=== PATIENT | female | born 1990 | race African-American/Black ===

== ENCOUNTER 2018-08-24 11:10 | Inpatient (IN) | payer OTHER ==
[2018-08-24 13:12] LABS: Hemoglobin 11.9 gm/dl (10.1-14.3); Mean Corpuscular HGB Conc 34 % (30-34); Mean Corpuscular Volume 83 fl (79-97); Platelet Count 254 K/mm3 (140-440); Red Blood Count 4.24 M/mm3 (3.65-5.03); Red Cell Distribution Width 17.9 % (13.2-15.2)
[2018-08-24 13:19] LABS: Bilirubin,Urine NEG (Negative); Blood,Urine NEG (Negative); Calcium Oxalate Crystals,Urine 3+; Color,Urine Yellow (Yellow); Mucus,Urine FEW /HPF; Protein,Urine <15 mg/dL mg/dL (Negative); Urobilinogen,Urine < 2.0 mg/dL (<2.0)
[2018-08-24 13:30] LABS: Alanine Aminotransferase 24 units/L (7-56)
[2018-08-24 13:35] LABS: RBC,Urine < 1.0 /HPF (0.0-6.0)
[2018-08-24 13:49] LABS: Creatinine,Urine 82.7 mg/dL (0.1-20.0); Protein/Creatinine Ratio,Urine 0.21
[2018-08-24] MEDS ORDERED: BRETHINE SUB-Q PRN (17:07)
[2018-08-24] MEDS ORDERED: BRETHINE IVP PRN (17:07)
[2018-08-24] MEDS ORDERED: STADOL IV PRN (17:07)
[2018-08-24] MEDS ORDERED: NARCAN 0.4 MG/1 ML IV PRN (17:07)
[2018-08-24] MEDS ORDERED: MINERAL OIL PO PRN (17:07)
[2018-08-24] MEDS ORDERED: ZOFRAN IV PRN (17:07)
[2018-08-24] MEDS ORDERED: XYLOCAINE 2% INFILTRATI ONE (17:07)
[2018-08-24] MEDS ORDERED: AMBIEN PO PRN (17:11)
--- NOTE | 2018-08-24 17:16 | History and Physical Report ---
History of Present Illness Date of examination: 08/24/18 Date of admission: 08/24/2018 Chief complaint: Presents due to elevated blood pressures and poorly controlled GDM A2 History of present illness: 2nd and 3rd trimesters complicated by a UTI and s/s of a common cold. 3rd trimester dignosed with GDM, taking Glyburide 2.5mg. Past History Past Medical History: no pertinent history Past Surgical History: no surgical history Family/Genetic History: none Social history: no significant social history - Obstetrical History Expected Date of Delivery: 09/21/18 Actual Gestation: 36 Week(s) 0 Day(s) : 1 Medications and Allergies Allergies Allergy/AdvReac Type Severity Reaction Status Date / Time No Known Allergies Allergy Verified 08/24/18 11:37 Active Meds: Active Medications Butorphanol Tartrate (Stadol) 2 mg IV Q2H PRN PRN Reason: Pain , Severe (7-10) Dinoprostone (Cervidil) 10 mg VG ONCE ONE Stop: 08/24/18 17:08 Ephedrine Sulfate (Ephedrine Sulfate) 10 mg IV Q2M PRN PRN Reason: Hypotension Oxytocin/Sodium Chloride (Pitocin/Ns 20 Unit/1000ml Drip) 20 units in 1,000 mls @ 125 mls/hr IV DIRECT JOSE ALEJANDRO Lactated Ringer's (Lactated Ringers) 1,000 mls @ 125 mls/hr IV DIRECT JOSE ALEJANDRO Lidocaine (Xylocaine 2%) 20 ml INFILTRATI ONCE ONE Stop: 08/24/18 17:08 Mineral Oil (Mineral Oil) 30 ml PO QHS PRN PRN Reason: Constipation Naloxone HCl (Narcan 0.4 Mg/1 Ml) 0.1 mg IV Q2MIN PRN PRN Reason: Res Rate </= 8 or 02 SAT < 92% Ondansetron HCl (Zofran) 4 mg IV Q8H PRN PRN Reason: Nausea And Vomiting Terbutaline Sulfate (Brethine) 0.25 mg SUB-Q ONCE PRN PRN Reason: Hyperstimulation/Hypertonicity Terbutaline Sulfate (Brethine) 0.25 mg IVP ONCE PRN PRN Reason: Hyperstimulation/Hypertonicity Zolpidem Tartrate (Ambien) 10 mg PO QHS PRN PRN Reason: Insomnia Review of Systems All systems: negative - Vital Signs Vital signs: Vital Signs Temp Pulse Resp BP 97.9 F 101 H 20 163/106 08/24/18 11:40 08/24/18 11:40 08/24/18 11:40 08/24/18 11:40 Temp Pulse Resp BP Pulse Ox 97.9 F 110 H 20 140/99 08/24/18 11:40 08/24/18 17:10 08/24/18 11:40 08/24/18 17:10 - Physical Exam Breasts: Positive: normal Cardiovascular: Regular rate Lungs: Positive: Clear to auscultation, Normal air movement Abdomen: Positive: normal appearance, soft Genitourinary (Female): Positive: normal external genitalia, normal perenium Vagina: Positive: normal moisture Uterus: Positive: enlarged Anus/Rectum: Positive: normal perianal skin Extremities: Positive: normal - Obstetrical FHR: category 1 Uterine Contraction Monitor Mode: External Cervical Dilatation: 0.5 Cervical Effacement Percentage: 50 station: -3 Uterine Contraction Pattern: Irregular Uterine Tone Measurement Phase: Resting Uterine Contraction Intensity: Mild Results Result Diagrams: 08/24/18 12:21 08/24/18 12:21 Abnormal lab results 08/24/18 08/24/18 08/24/18 Range/Units 12:21 12:21 12:21 RDW 17.9 H (13.2-15.2) % Creatinine 0.4 L (0.7-1.2) mg/dL POC Glucose (70-105) Uric Acid 3.0 L (3.5-7.6) mg/dL Urine Creatinine 82.7 H (0.1-20.0) mg/dL Urine Total Protein 17 H (5-11.8) mg/dL 08/24/18 Range/Units 14:17 RDW (13.2-15.2) % Creatinine (0.7-1.2) mg/dL POC Glucose 67 L (70-105) Uric Acid (3.5-7.6) mg/dL Urine Creatinine (0.1-20.0) mg/dL Urine Total Protein (5-11.8) mg/dL All other labs normal. Assessment and Plan A: IUP at 36 Weeks Category I Tracing Preeclampsia GDM A2 GBS Negative P: Admit to L&D per Routine Orders Consulted Dr. Benita Koenig MD Accuchecks q 4 hours Cervidil Induction Hydralazine 10mg IV for BPs equal to greater than 160/105 Ambien 10mg PO at bedtime
[2018-08-24] MEDS ORDERED: APRESOLINE IV PRN (17:24)
[2018-08-24] MEDS ORDERED: CERVIDIL VG ONE (17:30)
[2018-08-24] MEDS ORDERED: PITOCin/NS 20 UNIT/1000ML DRIP 20 UNITS/1,000 ML BAG IV SCH (18:00)
--- NOTE | 2018-08-25 07:17 | Ultrasound Report ---
PROCEDURE: US OB BPP WO NON-STRESS TECHNIQUE: Transabdominal imaging was obtained for the biophysical profile. HISTORY: BPP COMPARISONS: None FINDINGS: For breathing movements, a score of 2 out of 2 was obtained. For movements, a score of 2 out of 2 was obtained. For posture and tone, a score of 2 out of 2 was obtained. Qualitative amniotic fluid volume, a score of 2 out of 2 was obtained. The heart rate is 137 BPM. IMPRESSION: Biophysical profile score is 8 out of 8. The heart rate is 137 BPM.. This document is electronically signed by Jp Ware MD., August 25 2018 07:15:52 AM ET
--- NOTE | 2018-08-25 07:18 | Ultrasound Report ---
PROCEDURE: US OB LIMITED TECHNIQUE: A limited OB sonogram was obtained for evaluation of the JERAMY. HISTORY: JERAMY COMPARISONS: None FINDINGS: The JERAMY is 13.6 cm which is normal. The fetus is in cephalic presentation. The heart rate is 13 6 BPM. IMPRESSION: JERAMY is 13.6 cm which is normal.. This document is electronically signed by Jp Ware MD., August 25 2018 07:16:45 AM ET
[2018-08-25] MEDS ORDERED: MAGNESIUM SULFATE 4GM/100ML 4 GM/100 ML BAG IV ONE (08:00)
[2018-08-25] MEDS: LACTATED RINGERS 1,000 ML IV SCH ×2 (08:25→20:45)
[2018-08-25] MEDS: CYTOTEC VG PRN ×4 (08:30→23:25)
--- NOTE | 2018-08-25 08:46 | Progress Note ---
Assessment and Plan A: IUP at 36 1/7 Weeks Category I Tracing Preeclampsia GDM A2 GBS Negative P: Consulted Dr. Benita Koenig MD Recommends starting MagSO4: 4G/loading dose; 2G/hourly MagSO4 precautions Cytotec 25mcg placed per vagina Hydralazine 10mg IV for BPs equal to greater than 160/105 Continue Accuchecks Subjective - Subjective Date of service: 08/25/18 Interval history: 2nd and 3rd trimesters complicated by a UTI and s/s of a common cold. 3rd trimester dignosed with GDM, taking Glyburide 2.5mg. Patient reports: movement normal, other (Complains of HAs and dizziness) Objective - Vital Signs Vital Signs: Vital Signs - 12hr 08/24/18 08/24/18 08/24/18 20:40 22:33 23:34 Pulse Rate 96 H 100 H 110 H Respiratory Rate Blood Pressure 141/97 134/92 141/92 08/25/18 08/25/18 08/25/18 00:06 00:34 00:48 Pulse Rate 102 H 110 H 104 H Respiratory Rate Blood Pressure 137/93 143/93 135/96 08/25/18 08/25/18 08/25/18 01:03 01:34 01:49 Pulse Rate 99 H 107 H 114 H Respiratory Rate Blood Pressure 146/100 147/101 156/105 08/25/18 08/25/18 08/25/18 02:04 02:13 02:34 Pulse Rate 106 H 105 H 116 H Respiratory Rate Blood Pressure 152/104 158/104 142/94 08/25/18 08/25/18 08/25/18 03:04 03:34 04:04 Pulse Rate 125 H 126 H 131 H Respiratory Rate Blood Pressure 134/94 130/80 123/87 08/25/18 08/25/18 08/25/18 04:34 05:04 06:04 Pulse Rate 133 H 127 H 120 H Respiratory Rate Blood Pressure 121/81 137/75 136/77 08/25/18 08/25/18 08/25/18 06:23 06:24 06:25 Pulse Rate 130 H 123 H Respiratory 20 Rate Blood Pressure 159/106 151/102 08/25/18 08/25/18 08/25/18 06:34 07:03 07:32 Pulse Rate 127 H 144 H 116 H Respiratory Rate Blood Pressure 144/71 137/93 124/79 08/25/18 08/25/18 08:01 08:32 Pulse Rate 134 H 130 H Respiratory Rate Blood Pressure 135/98 146/93 - Exam Breasts: normal Cardiovascular: Regular rate Lungs: Clear to auscultation, Normal air movement Abdomen: Present: normal appearance, soft Uterus: Present: normal, firm FHR: category 1 Uterine Contraction Monitor Mode: External Cervical Dilatation: 1 (intact, VTX) Cervical Effacement Percentage: 50 station: -2 Uterine Contraction Pattern: Irregular Uterine Tone Measurement Phase: Resting Uterine Contraction Intensity: Mild Extremities: normal - Labs Labs: Abnormal Labs 08/24/18 08/24/18 08/24/18 12:21 12:21 12:21 RDW 17.9 H Creatinine 0.4 L POC Glucose Uric Acid 3.0 L Urine Creatinine 82.7 H Urine Total Protein 17 H 08/24/18 08/24/18 08/25/18 14:17 18:34 08:20 RDW Creatinine POC Glucose 67 L 122 H 108 H Uric Acid Urine Creatinine Urine Total Protein Laboratory Results - last 24 hr 08/24/18 08/24/18 08/24/18 12:21 12:21 12:21 WBC 9.9 RBC 4.24 Hgb 11.9 Hct 35.0 MCV 83 MCH 28 MCHC 34 RDW 17.9 H Plt Count 254 Creatinine Estimated GFR POC Glucose Uric Acid AST ALT Lactate Dehydrogenase Urine Color Yellow Urine Turbidity Clear Urine pH 7.0 Ur Specific [place] 1.014 Urine Protein <15 mg/dl Urine Glucose (UA) Neg Urine Ketones Neg Urine Blood Neg Urine Nitrite Neg Urine Bilirubin Neg Urine Urobilinogen < 2.0 Ur Leukocyte Esterase Tr Urine WBC (Auto) 6.0 Urine RBC (Auto) < 1.0 U Epithel Cells (Auto) 3.0 Calcium Oxalate Crystal 3+ Urine Mucus Few Urine Creatinine 82.7 H Protein/Creatinin Ratio 0.21 Urine Total Protein 17 H Blood Type Antibody Screen BELKYS Antibody Screen 08/24/18 08/24/18 08/24/18 12:21 12:21 14:17 WBC RBC Hgb Hct MCV MCH MCHC RDW Plt Count Creatinine 0.4 L Estimated GFR > 60 POC Glucose 67 L Uric Acid 3.0 L AST 35 ALT 24 Lactate Dehydrogenase 177 Urine Color Urine Turbidity Urine pH Ur Specific [place] Urine Protein Urine Glucose (UA) Urine Ketones Urine Blood Urine Nitrite Urine Bilirubin Urine Urobilinogen Ur Leukocyte Esterase Urine WBC (Auto) Urine RBC (Auto) U Epithel Cells (Auto) Calcium Oxalate Crystal Urine Mucus Urine Creatinine Protein/Creatinin Ratio Urine Total Protein Blood Type O POSITIVE Antibody Screen TNR BELKYS Antibody Screen Negative 08/24/18 08/25/18 18:34 08:20 WBC RBC Hgb Hct MCV MCH MCHC RDW Plt Count Creatinine Estimated GFR POC Glucose 122 H 108 H Uric Acid AST ALT Lactate Dehydrogenase Urine Color Urine Turbidity Urine pH Ur Specific [place] Urine Protein Urine Glucose (UA) Urine Ketones Urine Blood Urine Nitrite Urine Bilirubin Urine Urobilinogen Ur Leukocyte Esterase Urine WBC (Auto) Urine RBC (Auto) U Epithel Cells (Auto) Calcium Oxalate Crystal Urine Mucus Urine Creatinine Protein/Creatinin Ratio Urine Total Protein Blood Type Antibody Screen BELKYS Antibody Screen
[2018-08-25] MEDS: MAGNESIUM SULFATE 40GM/1000ML 40 GM/1,000 ML BAG IV SCH (08:55)
[2018-08-25] MEDS ORDERED: TYLENOL PO PRN (15:38)
--- NOTE | 2018-08-25 18:00 | Progress Note ---
Assessment and Plan A: IUP at 36 2/7 Weeks Category I Tracing Preeclampsia; MgS04 2gr/hr GDM A2 GBS Negative P: Continue labor [email or web address] Continue MagSO4 precautions Cytotec 25mcg placed per vagina Q4 per protocol Hydralazine 10mg IV for BPs equal to greater than 160/105 Continue Accuchecks Subjective - Subjective Date of service: 08/25/18 Patient reports: movement normal, no vaginal bleeding, no contractions Objective - Vital Signs Vital Signs: Vital Signs - 12hr 08/25/18 08/25/18 08/25/18 06:04 06:23 06:24 Temperature Pulse Rate 120 H 130 H 123 H Respiratory Rate Blood Pressure 136/77 159/106 151/102 O2 Sat by Pulse Oximetry 08/25/18 08/25/18 08/25/18 06:25 06:34 07:03 Temperature Pulse Rate 127 H 144 H Respiratory 20 Rate Blood Pressure 144/71 137/93 O2 Sat by Pulse Oximetry 08/25/18 08/25/18 08/25/18 07:32 08:01 08:32 Temperature 98.3 F Pulse Rate 116 H 134 H 130 H Respiratory 18 Rate Blood Pressure 124/79 135/98 146/93 O2 Sat by Pulse Oximetry 08/25/18 08/25/18 08/25/18 08:43 08:48 08:53 Temperature Pulse Rate 111 H 124 H 123 H Respiratory Rate Blood Pressure O2 Sat by Pulse 99 99 98 Oximetry 08/25/18 08/25/18 08/25/18 08:55 08:58 09:03 Temperature Pulse Rate 123 H 119 H 118 H Respiratory Rate Blood Pressure 139/89 O2 Sat by Pulse 99 99 Oximetry 08/25/18 08/25/18 08/25/18 09:08 09:11 09:13 Temperature Pulse Rate 120 H 118 H 117 H Respiratory Rate Blood Pressure 148/97 O2 Sat by Pulse 100 99 Oximetry 08/25/18 08/25/18 08/25/18 09:18 09:23 09:26 Temperature Pulse Rate 121 H 127 H 117 H Respiratory Rate Blood Pressure 138/96 O2 Sat by Pulse 99 99 Oximetry 08/25/18 08/25/18 08/25/18 09:28 09:33 09:38 Temperature Pulse Rate 115 H 115 H 117 H Respiratory Rate Blood Pressure O2 Sat by Pulse 100 100 100 Oximetry 08/25/18 08/25/18 08/25/18 09:41 09:43 09:48 Temperature Pulse Rate 120 H 128 H 110 H Respiratory Rate Blood Pressure 129/97 O2 Sat by Pulse 99 99 Oximetry 08/25/18 08/25/18 08/25/18 09:53 09:55 09:58 Temperature Pulse Rate 112 H 120 H 114 H Respiratory Rate Blood Pressure 138/102 O2 Sat by Pulse 99 99 Oximetry 08/25/18 08/25/18 08/25/18 10:03 10:08 10:11 Temperature Pulse Rate 112 H 110 H 118 H Respiratory Rate Blood Pressure 143/96 O2 Sat by Pulse 98 99 Oximetry 08/25/18 08/25/18 08/25/18 10:13 10:18 10:23 Temperature Pulse Rate 112 H 116 H 111 H Respiratory Rate Blood Pressure O2 Sat by Pulse 99 99 100 Oximetry 08/25/18 08/25/18 08/25/18 10:26 10:28 10:33 Temperature Pulse Rate 112 H 108 H 108 H Respiratory Rate Blood Pressure 140/103 O2 Sat by Pulse 100 100 Oximetry 08/25/18 08/25/18 08/25/18 10:38 10:41 10:43 Temperature Pulse Rate 105 H 104 H 101 H Respiratory Rate Blood Pressure 132/91 O2 Sat by Pulse 100 100 Oximetry 08/25/18 08/25/18 08/25/18 10:48 10:53 10:55 Temperature Pulse Rate 106 H 104 H 116 H Respiratory Rate Blood Pressure 133/88 O2 Sat by Pulse 100 100 Oximetry 08/25/18 08/25/18 08/25/18 10:58 11:03 11:08 Temperature Pulse Rate 116 H 124 H 127 H Respiratory Rate Blood Pressure O2 Sat by Pulse 100 100 100 Oximetry 08/25/18 08/25/18 08/25/18 11:11 11:13 11:18 Temperature Pulse Rate 118 H 118 H 121 H Respiratory Rate Blood Pressure 146/103 O2 Sat by Pulse 100 98 Oximetry 08/25/18 08/25/18 08/25/18 11:23 11:24 11:28 Temperature Pulse Rate 117 H 118 H 121 H Respiratory Rate Blood Pressure 147/109 O2 Sat by Pulse 100 99 Oximetry 08/25/18 08/25/18 08/25/18 11:33 11:38 11:43 Temperature Pulse Rate 106 H 104 H 108 H Respiratory Rate Blood Pressure O2 Sat by Pulse 98 99 99 Oximetry 08/25/18 08/25/18 08/25/18 11:48 11:53 11:58 Temperature Pulse Rate 107 H 106 H 131 H Respiratory Rate Blood Pressure O2 Sat by Pulse 99 99 100 Oximetry 08/25/18 08/25/18 08/25/18 12:03 12:08 12:13 Temperature Pulse Rate 102 H 107 H 105 H Respiratory Rate Blood Pressure O2 Sat by Pulse 100 98 99 Oximetry 08/25/18 08/25/18 08/25/18 12:18 12:23 12:25 Temperature 98.3 F Pulse Rate 126 H 105 H 113 H Respiratory 18 Rate Blood Pressure 134/94 O2 Sat by Pulse 99 98 Oximetry 08/25/18 08/25/18 08/25/18 12:28 12:33 12:38 Temperature Pulse Rate 118 H 117 H 117 H Respiratory Rate Blood Pressure O2 Sat by Pulse 99 99 99 Oximetry 08/25/18 08/25/18 08/25/18 12:43 12:48 12:53 Temperature Pulse Rate 117 H 108 H 108 H Respiratory Rate Blood Pressure O2 Sat by Pulse 98 99 99 Oximetry 08/25/18 08/25/18 08/25/18 12:58 13:03 13:08 Temperature Pulse Rate 115 H 107 H 105 H Respiratory Rate Blood Pressure O2 Sat by Pulse 98 98 97 Oximetry 08/25/18 08/25/18 08/25/18 13:13 13:18 13:23 Temperature Pulse Rate 104 H 109 H 111 H Respiratory Rate Blood Pressure O2 Sat by Pulse 97 98 96 Oximetry 08/25/18 08/25/18 08/25/18 13:24 13:25 13:28 Temperature Pulse Rate 130 H 118 H 108 H Respiratory Rate Blood Pressure 141/102 O2 Sat by Pulse 94 99 Oximetry 08/25/18 08/25/18 08/25/18 13:33 13:38 13:43 Temperature Pulse Rate 105 H 105 H 101 H Respiratory Rate Blood Pressure O2 Sat by Pulse 98 98 98 Oximetry 08/25/18 08/25/18 08/25/18 13:48 13:53 13:58 Temperature Pulse Rate 99 H 101 H 101 H Respiratory Rate Blood Pressure O2 Sat by Pulse 98 98 98 Oximetry 08/25/18 08/25/1819 14:03 14:08 14:13 Temperature Pulse Rate 102 H 102 H 99 H Respiratory Rate Blood Pressure O2 Sat by Pulse 98 98 97 Oximetry 08/25/18 08/25/18 08/25/18 14:18 14:23 14:25 Temperature Pulse Rate 106 H 122 H 113 H Respiratory Rate Blood Pressure 141/99 O2 Sat by Pulse 99 100 Oximetry 08/25/18 08/25/18 08/25/18 14:28 14:33 14:34 Temperature Pulse Rate 110 H 104 H 117 H Respiratory Rate Blood Pressure O2 Sat by Pulse 100 98 92 Oximetry 08/25/18 08/25/18 08/25/18 14:38 14:43 14:48 Temperature Pulse Rate 116 H 114 H 113 H Respiratory Rate Blood Pressure O2 Sat by Pulse 98 100 99 Oximetry 08/25/18 08/25/18 08/25/18 14:53 14:58 15:03 Temperature Pulse Rate 105 H 115 H 107 H Respiratory Rate Blood Pressure O2 Sat by Pulse 98 99 99 Oximetry 08/25/18 08/25/18 08/25/18 15:05 15:08 15:12 Temperature Pulse Rate 107 H 105 H 107 H Respiratory Rate Blood Pressure O2 Sat by Pulse 70 L 94 86 Oximetry 08/25/18 08/25/18 08/25/18 15:13 15:18 15:23 Temperature Pulse Rate 106 H 106 H 117 H Respiratory Rate Blood Pressure O2 Sat by Pulse 99 99 97 Oximetry 08/25/18 08/25/18 08/25/18 15:25 15:28 15:33 Temperature Pulse Rate 117 H 118 H 102 H Respiratory Rate Blood Pressure 147/93 O2 Sat by Pulse 97 98 Oximetry 08/25/18 08/25/18 08/25/18 15:38 15:43 15:48 Temperature Pulse Rate 101 H 99 H 109 H Respiratory Rate Blood Pressure O2 Sat by Pulse 98 99 98 Oximetry 08/25/18 08/25/18 08/25/18 15:53 15:58 16:03 Temperature Pulse Rate 105 H 98 H 101 H Respiratory Rate Blood Pressure O2 Sat by Pulse 98 98 98 Oximetry 08/25/18 08/25/18 08/25/18 16:08 16:13 16:18 Temperature Pulse Rate 98 H 98 H 103 H Respiratory Rate Blood Pressure O2 Sat by Pulse 98 98 98 Oximetry 08/25/18 08/25/18 08/25/18 16:23 16:24 16:28 Temperature Pulse Rate 101 H 110 H 99 H Respiratory Rate Blood Pressure 135/86 O2 Sat by Pulse 98 98 Oximetry 08/25/18 08/25/18 08/25/18 16:33 16:38 16:43 Temperature Pulse Rate 116 H 110 H 111 H Respiratory Rate Blood Pressure O2 Sat by Pulse 98 98 98 Oximetry 08/25/18 08/25/18 08/25/18 16:48 16:53 16:58 Temperature Pulse Rate 102 H 105 H 105 H Respiratory Rate Blood Pressure O2 Sat by Pulse 98 98 98 Oximetry 08/25/18 08/25/18 08/25/18 17:03 17:08 17:13 Temperature Pulse Rate 100 H 101 H 98 H Respiratory Rate Blood Pressure O2 Sat by Pulse 98 98 98 Oximetry 08/25/18 08/25/18 08/25/18 17:18 17:23 17:24 Temperature Pulse Rate 98 H 100 H 104 H Respiratory Rate Blood Pressure 127/84 O2 Sat by Pulse 98 98 Oximetry 08/25/18 08/25/18 08/25/18 17:28 17:33 17:38 Temperature Pulse Rate 100 H 97 H 104 H Respiratory Rate Blood Pressure O2 Sat by Pulse 98 97 97 Oximetry 08/25/18 17:43 Temperature Pulse Rate 107 H Respiratory Rate Blood Pressure O2 Sat by Pulse 98 Oximetry - Exam Breasts: normal Cardiovascular: Regular rate, Normal S1, Normal S2, No murmurs, Rubs Lungs: Clear to auscultation, Normal air movement Abdomen: Present: normal appearance, soft, normal bowel sounds. Absent: distention Vulva: both: normal Uterus: Present: other (Enlarged; Gravid) FHR: category 1 Uterine Contraction Monitor Mode: External Cervical Dilatation: 1 (Cervix anterior to pt left) Cervical Effacement Percentage: 50 station: 3 Uterine Contraction Pattern: Irregular Uterine Tone Measurement Phase: Resting Uterine Contraction Intensity: Mild Extremities: normal Deep Tendon Reflex Grade: Normal +2 - Labs Labs: Abnormal Labs 08/24/18 08/24/18 08/24/18 12:21 12:21 12:21 RDW 17.9 H Creatinine 0.4 L POC Glucose Uric Acid 3.0 L Urine Creatinine 82.7 H Urine Total Protein 17 H 08/24/18 08/24/18 08/25/18 14:17 18:34 08:20 RDW Creatinine POC Glucose 67 L 122 H 108 H Uric Acid Urine Creatinine Urine Total Protein Laboratory Results - last 24 hr 08/24/18 08/24/18 08/25/18 12:21 18:34 08:20 POC Glucose 122 H 108 H Blood Type O POSITIVE Antibody Screen TNR BELKYS Antibody Screen Negative 08/25/18 08/25/18 12:38 16:39 POC Glucose 94 100 Blood Type Antibody Screen BELKYS Antibody Screen
[2018-08-26] MEDS: CYTOTEC VG PRN (04:52)
[2018-08-26] MEDS: MAGNESIUM SULFATE 40GM/1000ML 40 GM/1,000 ML BAG IV SCH (04:52)
[2018-08-26] MEDS: LACTATED RINGERS 1,000 ML IV SCH ×2 (09:03→13:25)
[2018-08-26] MEDS ORDERED: PEPCID IV ONE (11:34)
[2018-08-26] MEDS ORDERED: REGLAN IV ONE (11:34)
[2018-08-26] MEDS ORDERED: BICITRA PO ONE (11:34)
--- NOTE | 2018-08-26 11:37 | Progress Note ---
Assessment and Plan A: IUP at 36 3/7 Weeks Category I Tracing Preeclampsia; MgS04 2gr/hr (Mag Level 6.9) Pressures remain elevated 140s/100s GDM A2 GBS Negative Pt has received cervidil x1, Cytotec x5 with no change in cervix P: Continue labor orders Continue MagSO4 precautions; MAG OFF at this time, Restart at 1300 at 1 gram per hour (pending C/S). Hydralazine 10mg IV for BPs equal to greater than 160/[address] Frank to evaluate for primary section d/t failed IOL. Subjective - Subjective Date of service: 08/26/18 (08:55) Principal diagnosis: IUP 36w3d wks, Pre eclampsia, GDM, IOL Patient reports: vaginal bleeding, movement normal, no contractions Objective - Vital Signs Vital Signs: Vital Signs - 12hr 08/25/18 08/25/18 08/25/18 23:34 23:39 23:44 Temperature Pulse Rate 101 H 99 H 101 H Respiratory Rate Blood Pressure Blood Pressure [Left] O2 Sat by Pulse 98 98 97 Oximetry 08/25/18 08/25/18 08/25/18 23:49 23:54 23:59 Temperature Pulse Rate 101 H 101 H 102 H Respiratory Rate Blood Pressure Blood Pressure [Left] O2 Sat by Pulse 98 97 97 Oximetry 08/26/18 08/26/18 08/26/18 00:00 00:04 00:09 Temperature 98.6 F Pulse Rate 99 H 101 H Respiratory 18 Rate Blood Pressure Blood Pressure [Left] O2 Sat by Pulse 97 97 Oximetry 08/26/18 08/26/18 08/26/18 00:14 00:19 00:24 Temperature Pulse Rate 103 H 97 H 107 H Respiratory Rate Blood Pressure 138/86 Blood Pressure [Left] O2 Sat by Pulse 98 98 100 Oximetry 08/26/18 08/26/18 08/26/18 00:29 00:34 00:39 Temperature Pulse Rate 95 H 100 H 100 H Respiratory Rate Blood Pressure Blood Pressure [Left] O2 Sat by Pulse 100 100 98 Oximetry 08/26/18 08/26/18 08/26/18 00:44 00:49 00:54 Temperature Pulse Rate 98 H 108 H 99 H Respiratory Rate Blood Pressure Blood Pressure [Left] O2 Sat by Pulse 97 98 98 Oximetry 08/26/18 08/26/18 08/26/18 00:59 01:00 01:04 Temperature 97.8 F Pulse Rate 100 H 98 H Respiratory 20 Rate Blood Pressure Blood Pressure [Left] O2 Sat by Pulse 98 97 Oximetry 08/26/18 08/26/18 08/26/18 01:09 01:14 01:19 Temperature Pulse Rate 94 H 94 H 92 H Respiratory Rate Blood Pressure Blood Pressure [Left] O2 Sat by Pulse 97 98 98 Oximetry 08/26/18 08/26/18 08/26/18 01:24 01:25 01:29 Temperature Pulse Rate 100 H 93 H 94 H Respiratory Rate Blood Pressure 113/73 Blood Pressure [Left] O2 Sat by Pulse 98 98 Oximetry 08/26/18 08/26/18 08/26/18 01:34 01:39 01:44 Temperature Pulse Rate 90 90 101 H Respiratory Rate Blood Pressure Blood Pressure [Left] O2 Sat by Pulse 98 98 97 Oximetry 08/26/18 08/26/18 08/26/18 01:49 01:54 01:59 Temperature Pulse Rate 103 H 100 H 98 H Respiratory Rate Blood Pressure Blood Pressure [Left] O2 Sat by Pulse 98 98 97 Oximetry 08/26/18 08/26/18 08/26/18 02:00 02:04 02:09 Temperature 97.8 F Pulse Rate 92 H 94 H Respiratory 18 Rate Blood Pressure Blood Pressure [Left] O2 Sat by Pulse 97 98 Oximetry 08/26/18 08/26/18 08/26/18 02:14 02:19 02:24 Temperature Pulse Rate 118 H 94 H 93 H Respiratory Rate Blood Pressure Blood Pressure [Left] O2 Sat by Pulse 97 97 99 Oximetry 08/26/18 08/26/18 08/26/18 02:25 02:29 02:34 Temperature Pulse Rate 92 H 101 H 93 H Respiratory Rate Blood Pressure 118/78 Blood Pressure [Left] O2 Sat by Pulse 99 99 Oximetry 08/26/18 08/26/18 08/26/18 02:39 02:44 02:49 Temperature Pulse Rate 95 H 94 H 121 H Respiratory Rate Blood Pressure Blood Pressure [Left] O2 Sat by Pulse 99 99 98 Oximetry 08/26/18 08/26/18 08/26/18 02:54 02:59 03:00 Temperature 96.5 F L Pulse Rate 86 85 Respiratory 18 Rate Blood Pressure Blood Pressure [Left] O2 Sat by Pulse 97 97 Oximetry 08/26/18 08/26/18 08/26/18 03:04 03:09 03:14 Temperature Pulse Rate 90 87 89 Respiratory Rate Blood Pressure Blood Pressure [Left] O2 Sat by Pulse 97 97 97 Oximetry 08/26/18 08/26/18 08/26/18 03:19 03:24 03:29 Temperature Pulse Rate 88 91 H 94 H Respiratory Rate Blood Pressure 126/95 Blood Pressure [Left] O2 Sat by Pulse 97 98 97 Oximetry 08/26/18 08/26/18 08/26/18 03:31 03:34 03:39 Temperature Pulse Rate 94 H 107 H 101 H Respiratory Rate Blood Pressure Blood Pressure [Left] O2 Sat by Pulse 93 96 97 Oximetry 08/26/18 08/26/18 08/26/18 03:44 03:49 03:54 Temperature Pulse Rate 97 H 90 87 Respiratory Rate Blood Pressure Blood Pressure [Left] O2 Sat by Pulse 97 93 97 Oximetry 08/26/18 08/26/18 08/26/18 03:59 04:00 04:04 Temperature 98.4 F Pulse Rate 87 88 Respiratory Rate Blood Pressure Blood Pressure [Left] O2 Sat by Pulse 97 97 Oximetry 08/26/18 08/26/18 08/26/18 04:09 04:14 04:19 Temperature Pulse Rate 88 87 90 Respiratory Rate Blood Pressure Blood Pressure [Left] O2 Sat by Pulse 97 97 98 Oximetry 08/26/18 08/26/18 08/26/18 04:24 04:27 04:29 Temperature Pulse Rate 116 H 109 H 94 H Respiratory Rate Blood Pressure 140/97 Blood Pressure [Left] O2 Sat by Pulse 97 99 Oximetry 08/26/18 08/26/18 08/26/18 04:34 04:39 04:44 Temperature Pulse Rate 89 90 83 Respiratory Rate Blood Pressure Blood Pressure [Left] O2 Sat by Pulse 99 99 99 Oximetry 08/26/18 08/26/18 08/26/18 04:49 04:54 04:59 Temperature Pulse Rate 108 H 105 H 98 H Respiratory Rate Blood Pressure Blood Pressure [Left] O2 Sat by Pulse 99 99 99 Oximetry 08/26/18 08/26/18 08/26/18 05:04 05:09 05:14 Temperature Pulse Rate 100 H 100 H 103 H Respiratory Rate Blood Pressure Blood Pressure [Left] O2 Sat by Pulse 99 98 98 Oximetry 08/26/18 08/26/18 08/26/18 05:19 05:24 05:25 Temperature Pulse Rate 101 H 97 H 99 H Respiratory Rate Blood Pressure 117/82 Blood Pressure [Left] O2 Sat by Pulse 99 98 Oximetry 08/26/18 08/26/18 08/26/18 05:29 05:30 05:34 Temperature 97.8 F Pulse Rate 93 H 98 H Respiratory 20 Rate Blood Pressure Blood Pressure [Left] O2 Sat by Pulse 99 98 Oximetry 08/26/18 08/26/18 08/26/18 05:39 05:44 05:49 Temperature Pulse Rate 94 H 93 H 105 H Respiratory Rate Blood Pressure Blood Pressure [Left] O2 Sat by Pulse 98 98 99 Oximetry 08/26/18 08/26/18 08/26/18 05:54 05:59 06:04 Temperature Pulse Rate 101 H 101 H 99 H Respiratory Rate Blood Pressure Blood Pressure [Left] O2 Sat by Pulse 98 97 97 Oximetry 08/26/18 08/26/18 08/26/18 06:09 06:14 06:19 Temperature Pulse Rate 96 H 97 H 102 H Respiratory Rate Blood Pressure Blood Pressure [Left] O2 Sat by Pulse 97 97 96 Oximetry 08/26/18 08/26/18 08/26/18 06:24 06:25 06:29 Temperature Pulse Rate 96 H 93 H 94 H Respiratory Rate Blood Pressure 139/80 Blood Pressure [Left] O2 Sat by Pulse 97 97 Oximetry 08/26/18 08/26/18 08/26/18 06:34 06:36 06:39 Temperature 98.6 F Pulse Rate 92 H 92 H Respiratory 20 Rate Blood Pressure Blood Pressure [Left] O2 Sat by Pulse 96 96 Oximetry 08/26/18 08/26/18 08/26/18 06:44 06:49 06:54 Temperature Pulse Rate 92 H 101 H 95 H Respiratory Rate Blood Pressure Blood Pressure [Left] O2 Sat by Pulse 96 96 97 Oximetry 08/26/18 08/26/18 08/26/18 06:59 07:04 07:09 Temperature Pulse Rate 95 H 93 H 95 H Respiratory Rate Blood Pressure Blood Pressure [Left] O2 Sat by Pulse 97 97 97 Oximetry 08/26/18 08/26/18 08/26/18 07:14 07:19 07:24 Temperature Pulse Rate 101 H 96 H 104 H Respiratory Rate Blood Pressure 136/98 Blood Pressure [Left] O2 Sat by Pulse 98 98 97 Oximetry 08/26/18 08/26/18 08/26/18 07:25 07:29 07:34 Temperature 98.5 F Pulse Rate 98 H 93 H 94 H Respiratory 16 Rate Blood Pressure Blood Pressure 136/98 [Left] O2 Sat by Pulse 97 98 98 Oximetry 08/26/18 08/26/18 08/26/18 07:39 07:44 07:49 Temperature Pulse Rate 89 90 85 Respiratory Rate Blood Pressure Blood Pressure [Left] O2 Sat by Pulse 98 98 97 Oximetry 08/26/18 08/26/18 08/26/18 07:50 07:54 07:56 Temperature Pulse Rate 92 H 82 90 Respiratory Rate Blood Pressure Blood Pressure [Left] O2 Sat by Pulse 93 98 94 Oximetry 08/26/18 08/26/18 08/26/18 07:59 08:04 08:09 Temperature Pulse Rate 89 92 H 109 H Respiratory Rate Blood Pressure Blood Pressure [Left] O2 Sat by Pulse 96 98 97 Oximetry 08/26/18 08/26/18 08/26/18 08:14 08:19 08:24 Temperature Pulse Rate 93 H 93 H 87 Respiratory Rate Blood Pressure 134/92 Blood Pressure [Left] O2 Sat by Pulse 98 98 97 Oximetry 08/26/18 08/26/18 08/26/18 08:29 08:34 08:39 Temperature Pulse Rate 88 94 H 90 Respiratory Rate Blood Pressure Blood Pressure [Left] O2 Sat by Pulse 97 97 97 Oximetry 08/26/18 08/26/18 08/26/18 08:44 08:49 08:54 Temperature Pulse Rate 89 96 H 105 H Respiratory Rate Blood Pressure Blood Pressure [Left] O2 Sat by Pulse 98 96 98 Oximetry 08/26/18 08/26/18 08/26/18 08:59 09:04 09:09 Temperature Pulse Rate 102 H 96 H 114 H Respiratory Rate Blood Pressure 136/93 Blood Pressure [Left] O2 Sat by Pulse 96 98 97 Oximetry 08/26/18 08/26/18 08/26/18 09:14 09:19 09:24 Temperature Pulse Rate 86 85 89 Respiratory Rate Blood Pressure 133/86 Blood Pressure [Left] O2 Sat by Pulse 98 98 98 Oximetry 08/26/18 08/26/18 08/26/18 09:29 09:34 09:39 Temperature Pulse Rate 101 H 98 H 92 H Respiratory Rate Blood Pressure Blood Pressure [Left] O2 Sat by Pulse 99 99 99 Oximetry 08/26/18 08/26/18 08/26/18 09:44 09:49 09:54 Temperature Pulse Rate 94 H 101 H 104 H Respiratory Rate Blood Pressure Blood Pressure [Left] O2 Sat by Pulse 98 98 97 Oximetry 08/26/18 08/26/18 08/26/18 09:59 10:04 10:09 Temperature Pulse Rate 99 H 100 H 91 H Respiratory Rate Blood Pressure Blood Pressure [Left] O2 Sat by Pulse 96 100 100 Oximetry 08/26/18 08/26/18 08/26/18 10:14 10:19 10:24 Temperature Pulse Rate 93 H 96 H 95 H Respiratory Rate Blood Pressure Blood Pressure [Left] O2 Sat by Pulse 100 100 100 Oximetry 08/26/18 08/26/18 08/26/18 10:25 10:26 10:28 Temperature Pulse Rate 87 98 H 93 H Respiratory Rate Blood Pressure 157/102 159/106 149/100 Blood Pressure [Left] O2 Sat by Pulse Oximetry 08/26/18 08/26/18 08/26/18 10:29 10:34 10:39 Temperature Pulse Rate 96 H 96 H 94 H Respiratory Rate Blood Pressure Blood Pressure [Left] O2 Sat by Pulse 100 100 100 Oximetry 08/26/18 08/26/18 08/26/18 10:44 10:49 10:54 Temperature Pulse Rate 96 H 90 96 H Respiratory Rate Blood Pressure 149/103 Blood Pressure [Left] O2 Sat by Pulse 100 100 100 Oximetry 08/26/18 08/26/18 08/26/18 10:59 11:04 11:09 Temperature Pulse Rate 91 H 94 H 88 Respiratory Rate Blood Pressure Blood Pressure [Left] O2 Sat by Pulse 100 100 100 Oximetry 08/26/18 08/26/18 08/26/18 11:14 11:19 11:24 Temperature Pulse Rate 93 H 99 H 114 H Respiratory Rate Blood Pressure 131/84 Blood Pressure [Left] O2 Sat by Pulse 100 100 98 Oximetry - Exam Cardiovascular: Regular rate, Normal S1, Normal S2, No murmurs Lungs: Clear to auscultation, Normal air movement Abdomen: Present: soft Uterus: Present: other (gravid) FHR: category 1 Uterine Contraction Monitor Mode: External Cervical Dilatation: 1 (Unchanged per L&D RN) Uterine Contraction Pattern: Irregular Uterine Tone Measurement Phase: Resting Uterine Contraction Intensity: Mild - Labs Labs: Abnormal Labs 08/24/18 08/24/18 08/24/18 12:21 12:21 12:21 RDW 17.9 H Creatinine 0.4 L POC Glucose Uric Acid 3.0 L Magnesium Urine Creatinine 82.7 H Urine Total Protein 17 H 08/24/18 08/24/18 08/25/18 14:17 18:34 08:20 RDW Creatinine POC Glucose 67 L 122 H 108 H Uric Acid Magnesium Urine Creatinine Urine Total Protein 08/26/18 05:47 RDW Creatinine POC Glucose Uric Acid Magnesium 6.60 H Urine Creatinine Urine Total Protein Laboratory Results - last 24 hr 08/25/18 08/25/18 08/26/18 12:38 16:39 05:47 POC Glucose 94 100 Magnesium 6.60 H 08/26/18 06:38 POC Glucose 75 Magnesium
[2018-08-26] MEDS ORDERED: LACTATED RINGERS 1,000 ML IV SCH ×2 (12:00→14:00)
[2018-08-26] MEDS ORDERED: ANCEF/STERILE WATER 2 GM/20 ML 2 GM/20 ML SYRINGE IV NR (12:00)
[2018-08-26] MEDS ORDERED: BICITRA PO SCH (13:40)
[2018-08-26] MEDS ORDERED: REGLAN IV SCH (13:40)
[2018-08-26] MEDS ORDERED: PEPCID IV SCH (13:40)
[2018-08-26] MEDS ORDERED: SUBLIMAZE ONE (13:45)
[2018-08-26] MEDS ORDERED: ANCEF/STERILE WATER 2 GM/20 ML IV ONE (13:52)
[2018-08-26] MEDS ORDERED: PITOCin/NS 20 UNIT/1000ML DRIP 20 UNITS/1,000 ML BAG IV SCH (14:00)
[2018-08-26] MEDS ORDERED: D50W (25GM) Syringe IV PRN (15:08)
[2018-08-26] MEDS ORDERED: NORCO 5/325 PO PRN (15:08)
--- NOTE | 2018-08-26 15:14 | Operative Report ---
Operative Report Operative Report: Date of procedure: 08/26/2018 Pre-operative diagnosis: 1. Intrauterine at 36-3/7 weeks 2. Preec lampsia 3. Gestational diabetes mellitus 4. Failed induction of labor Post-operative diagnosis: Same Procedure name(s): Primary low transverse section Surgeon: Diego Koenig MD Meter Installer And Remover: None Anesthesia: Spinal anesthesia EBL: 500 mL's Findings: A 2758 g male Apgars 8 at 1 minute and 9 at 5 minutes. Clear amniotic fluid. Normal uterus. Normal tubes and ovaries bilaterally. Procedure: After the patient was prepped and draped in usual sterile fashion, and after satisfactory level of epidural anesthesia was obtained, the skin knife was used to make a transverse skin incision. The incision was excised down to layer of the fascia, which was nicked in the midline and extended laterally using the Bovie cautery. The rectus muscles were dissected off the rectus fascia both superiorly and inferiorly. The rectus bellies in the midline, and the peritoneum was entered under direct visualization. The peritoneal incision was extended superiorly and inferiorly. A bladder flap was created and the bladder blade was then placed. The uterus was scored in a curvilinear linear fashion, entered in the midline revealing clear amniotic fluid. The 's head was delivered onto the surgical field, and the oropharynx and nasopharynx were bulb suctioned. The rest of the 's body was delivered, cord was doubly clamped and cut and the was handed to the waiting respiratory team. Cord blood was then obtained. The placenta was manually removed from the uterus, and the uterus removed from its normal anatomical position. After gentle uterine lavage, the incision was inspected and found to be without extensions. It was then closed in 2 layers using 0 Vicryl suture in a running interlocking fashion, the second layer imbricating the first. After good hemostasis was achieved, copious amounts or irrigation was performed, and the gutters were suctioned free of blood and blood clots. Tisseel sealant was sprayed across the uterine incision. The uterus was then returned to its normal anatomical position, and after excellent hemostasis assured, the peritoneum was re-approximated using 3-0 Vicryl suture in a running interlocking fashion, and then the rectus muscles were re-approximated using 3-0 Vicryl suture in a [id number] configuration. The fascia was then re- approximated using 0 Vicryl suture in running interlocking fashion. The subcutaneous layer was made hemostatic using Bovie cautery, the Tisseel sealant was sprayed across the fascial incision and the skin edges re-approximated using 4-0 Vicryl suture in a sub-cuticular fashion. Patient tolerated the procedure well was transported to recovery in stable condition.
[2018-08-26] MEDS ORDERED: TYLENOL PO PRN (16:08)
[2018-08-26] MEDS ORDERED: TORADOL ONE (16:57)
[2018-08-26] MEDS ORDERED: LACTATED RINGERS 0 ML ONE (16:57)
[2018-08-26] MEDS ORDERED: MAGNESIUM SULFATE 40GM/1000ML 40 GM/1,000 ML BAG IV ONE (16:57)
--- NOTE | 2018-08-26 18:27 | Anesthesia Consultation ---
Anesthesia Consult and Med Hx Date of service: 08/26/18 - Airway Anesthetic Teeth Evaluation: Chipped ROM Head & Neck: Adequate Mental/Hyoid Distance: Adequate Mallampati Class: Class II Intubation Access Assessment: Probably Good - Pulmonary Exam CTA: Yes - Cardiac Exam Cardiac Exam: RRR - Pre-Operative Health Status ASA Pre-Surgery Classification: ASA2 Proposed Anesthetic Plan: Spinal - Pulmonary Hx Smoking: No Hx Asthma: No Hx Respiratory Symptoms: No SOB: No COPD: No Home Oxygen Therapy: No Hx Pneumonia: No Hx Sleep Apnea: No - Cardiovascular System Hx Hypertension: No Hx Coronary Artery Disease: No Hx Heart Attack/AMI: No Hx Angina: No Hx Percutaneous Transluminal Coronary Angioplasty (PTCA): No Hx Cardia Arrhythmia: No Hx Pacemaker: No Hx Internal Defibrillator: No Hx Valvular Heart Disease: No Hx Heart Murmur: No Hx Peripheral Vascular Disease: No - Central Nervous System Hx Neuromuscular Disorder: No Hx Seizures: No CVA: No Hx Back Pain: Yes Hx Psychiatric Problems: No - Gastrointestinal Hx Ulcer: No Hx Gastroesophageal Reflux Disease: Yes - Endocrine Hx Renal Disease: No Hx End Stage Renal Disease: No Hx Cirrhosis: No Hx Liver Disease: No Hx Insulin Dependent Diabetes: No Hx Non-Insulin Dependent Diabetes: No Hx Thyroid Disease: No Hx Hypothyroidism: No Hx Hyperthyroidism: No - Hematic Hx Anemia: No Hx Sickle Cell Disease: No - Other Systems Hx Alcohol Use: No Hx Substance Use: No Hx Cancer: No Hx Obesity: Yes
--- NOTE | 2018-08-26 18:28 | Anesthesia Day of Surgery ---
Anesthesia Day of Surgery - Day of Surgery Patient Examined: Yes Patient H&P Reviewed: Yes Patient is NPO: Yes Beta Blockers: No Cardiac Clearance: No Pulmonary Clearance: No Ozzie's Test: N/A
--- NOTE | 2018-08-26 18:29 | Post Anesthesia Evaluation ---
- Post Anesthesia Evaluation Patient Participated: Yes Airway Patent: Yes Stable Respiratory Function: Yes Nausea/Vomiting: No Temp > 96.8F: Yes Pain Manageable: Yes Adequeate Hydration: Yes Anesthesia Complications: No Block Receding Appropriately: Yes Patient on Ventilator: No
[2018-08-26] MEDS: PERCOCET 5/325 PO PRN (20:43)
[2018-08-26] MEDS: TORADOL IV SCH (22:59)
[2018-08-26] MEDS: ANCEF/NS 1 GM/50 ML 1 GM/50 ML BAG IV SCH (23:00)
[2018-08-27] MEDS: D5LR 1,000 ML IV SCH ×2 (03:00→12:15)
[2018-08-27] MEDS: TORADOL IV SCH ×2 (05:20→19:46)
[2018-08-27] MEDS: ANCEF/NS 1 GM/50 ML 1 GM/50 ML BAG IV SCH (05:21)
[2018-08-27 06:56] LABS: Hematocrit 33.4 % (30.3-42.9); Hemoglobin 11.2 gm/dl (10.1-14.3)
--- NOTE | 2018-08-27 12:16 | Progress Note ---
Assessment and Plan A: /postop day 1 S/P primary low transverse section. Preeclampsia; BPs stable. P: Plan is to discontinue magnesium sulfate this afternoon and transfer patient to MB unit. Subjective - Subjective Date of service: 08/27/18 Principal diagnosis: /postop day 1 S/P primary low transverse section Interval history: /postop day 1 S/P primary low transverse section. Receiving magnesium sulfate for seizure prevention due to preeclampsia. Patient denies headache, visual disturbance, nausea or vomiting, abdominal or epigastric pain, chest pain, shortness of breath, cough, heavy vaginal bleeding, or any other problems. Patient has not passed gas yet. Tolerating a clear liquid diet. Patient reports: appetite normal, pain well controlled, no flatus, no nauseated [place]: doing well Objective - Vital Signs Latest vital signs: Vital Signs Temp Pulse Resp BP BP Pulse Ox 08/27/18 12:08 106 H 133/77 08/27/18 11:55 84 82 L 08/27/18 11:48 94 08/27/18 11:39 68 L 08/27/18 11:38 113 H 129/87 08/27/18 11:34 65 66 L 08/27/18 11:31 74 76 L 08/27/18 11:29 77 L 08/27/18 11:25 36 L 82 L 08/27/18 11:24 82 L 08/27/18 11:19 81 L 08/27/18 11:11 79 L 08/27/18 11:08 106 H 131/94 08/27/18 10:58 139 H 78 L 08/27/18 10:52 81 L 08/27/18 10:47 70 82 L 08/27/18 10:42 58 L 80 L 08/27/18 10:40 59 L 84 08/27/18 10:38 108 H 136/93 08/27/18 10:37 72 L 08/27/18 10:31 79 79 L 08/27/18 10:26 82 L 08/27/18 10:25 71 L 08/27/18 10:21 60 86 08/27/18 10:20 103 H 98 08/27/18 10:16 16 08/27/18 10:15 103 H 98 08/27/18 10:10 106 H 98 08/27/18 10:08 104 H 150/104 08/27/18 10:05 105 H 97 08/27/18 10:00 111 H 96 08/27/18 09:59 97.7 F 92 H 16 140/90 08/27/18 09:58 85 08/27/18 09:52 122 H 98 08/27/18 09:47 112 H 99 08/27/18 09:43 104 H 92 08/27/18 09:42 107 H 96 08/27/18 09:38 105 H 140/90 08/27/18 09:37 107 H 99 08/27/18 09:32 105 H 98 08/27/18 09:27 106 H 98 08/27/18 09:22 105 H 99 08/27/18 09:17 100 H 98 08/27/18 09:12 102 H 99 08/27/18 09:08 100 H 135/91 92 08/27/18 09:07 102 H 97 08/27/18 09:02 100 H 98 08/27/18 08:57 105 H 99 08/27/18 08:52 99 H 99 08/27/18 08:47 90 99 08/27/18 08:42 100 H 100 08/27/18 08:38 112 H 144/80 08/27/18 08:37 85 97 08/27/18 08:32 91 H 97 08/27/18 08:27 89 97 08/27/18 08:22 91 H 98 08/27/18 08:17 90 98 08/27/18 08:12 93 H 97 08/27/18 08:08 102 H 132/80 08/27/18 08:07 90 95 08/27/18 08:02 91 H 98 08/27/18 07:57 92 H 97 08/27/18 07:52 101 H 98 08/27/18 07:47 100 H 97 08/27/18 07:42 96 H 98 08/27/18 07:38 93 H 129/85 08/27/18 07:37 98 H 98 08/27/18 07:34 103 H 92 08/27/18 07:32 101 H 98 08/27/18 07:27 104 H 99 08/27/18 07:22 105 H 98 08/27/18 07:17 100 H 97 08/27/18 07:12 89 98 08/27/18 07:08 91 H 124/74 08/27/18 07:07 107 H 98 08/27/18 07:02 95 H 97 08/27/18 06:57 101 H 98 08/27/18 06:52 100 H 99 08/27/18 06:47 103 H 97 08/27/18 06:42 104 H 99 08/27/18 06:38 96 H 131/84 08/27/18 06:37 98 H 99 08/27/18 06:32 101 H 98 08/27/18 06:27 100 H 98 08/27/18 06:22 95 H 97 08/27/18 06:17 106 H 98 08/27/18 06:12 100 H 98 08/27/18 06:08 98 H 135/83 08/27/18 06:07 107 H 99 08/27/18 06:02 104 H 98 08/27/18 05:57 96 H 98 08/27/18 05:52 100 H 98 08/27/18 05:47 99 H 100 08/27/18 05:42 102 H 99 08/27/18 05:38 105 H 136/87 08/27/18 05:37 103 H 99 08/27/18 05:32 100 H 99 08/27/18 05:27 97 H 99 08/27/18 05:22 107 H 99 08/27/18 05:17 114 H 98 08/27/18 05:12 94 H 98 08/27/18 05:08 94 H 126/81 08/27/18 05:07 94 H 97 08/27/18 05:02 90 98 08/27/18 04:57 91 H 98 08/27/18 04:52 92 H 98 08/27/18 04:47 94 H 97 08/27/18 04:42 98 H 97 08/27/18 04:38 115 H 130/87 08/27/18 04:37 96 H 97 08/27/18 04:32 94 H 98 08/27/18 04:27 90 97 08/27/18 04:22 88 97 08/27/18 04:17 89 98 08/27/18 04:12 91 H 97 08/27/18 04:08 104 H 126/83 08/27/18 04:07 88 98 08/27/18 04:02 89 98 08/27/18 03:57 88 97 08/27/18 03:55 103 H 91 08/27/18 03:52 92 H 98 08/27/18 03:47 89 98 08/27/18 03:42 95 H 98 08/27/18 03:38 96 H 120/81 08/27/18 03:37 91 H 98 08/27/18 03:32 91 H 98 08/27/18 03:27 89 98 08/27/18 03:22 91 H 98 08/27/18 03:17 92 H 98 08/27/18 03:12 94 H 98 08/27/18 03:08 93 H 133/83 08/27/18 03:07 89 99 08/27/18 03:02 89 99 08/27/18 02:57 95 H 99 08/27/18 02:52 101 H 98 08/27/18 02:47 89 97 08/27/18 02:42 88 98 08/27/18 02:38 104 H 125/85 08/27/18 02:37 86 98 08/27/18 02:32 92 H 98 08/27/18 02:27 91 H 98 08/27/18 02:22 91 H 98 08/27/18 02:17 91 H 98 08/27/18 02:12 98 H 98 08/27/18 02:08 96 H 129/84 08/27/18 02:07 92 H 99 08/27/18 02:02 91 H 99 08/27/18 01:57 93 H 97 08/27/18 01:52 93 H 99 08/27/18 01:47 97 H 99 08/27/18 01:42 103 H 100 08/27/18 01:38 90 134/88 08/27/18 01:37 101 H 100 08/27/18 01:32 99 H 100 08/27/18 01:27 97 H 99 08/27/18 01:22 94 H 99 08/27/18 01:17 98 H 99 08/27/18 01:12 94 H 99 08/27/18 01:08 96 H 129/93 08/27/18 01:07 100 H 98 08/27/18 01:02 96 H 99 08/27/18 00:57 79 97 08/27/18 00:52 97 H 99 08/27/18 00:47 103 H 99 08/27/18 00:42 97 H 97 08/27/18 00:38 100 H 136/94 08/27/18 00:37 99 H 99 08/27/18 00:32 99 H 99 08/27/18 00:27 101 H 99 08/27/18 00:22 99 H 99 08/27/18 00:17 95 H 98 08/27/18 00:12 96 H 99 08/27/18 00:08 96 H 130/86 08/27/18 00:07 98 H 99 08/27/18 00:02 99 H 99 08/26/18 23:57 100 H 99 08/26/18 23:52 95 H 99 08/26/18 23:47 101 H 98 08/26/18 23:42 94 H 98 08/26/18 23:38 94 H 131/90 08/26/18 23:37 97 H 99 08/26/18 23:32 93 H 98 08/26/18 23:27 96 H 99 08/26/18 23:22 100 H 98 08/26/18 23:17 102 H 100 08/26/18 23:12 103 H 98 08/26/18 23:08 91 H 147/94 08/26/18 23:07 93 H 96 08/26/18 23:02 93 H 97 08/26/18 22:57 95 H 98 08/26/18 22:52 92 H 97 08/26/18 22:47 95 H 98 08/26/18 22:42 93 H 98 08/26/18 22:38 100 H 137/92 08/26/18 22:37 104 H 98 08/26/18 22:32 109 H 96 08/26/18 22:27 97 H 98 08/26/18 22:22 98 H 98 08/26/18 22:17 99 H 98 08/26/18 22:12 99 H 98 08/26/18 22:08 96 H 142/94 08/26/18 22:07 104 H 98 08/26/18 22:02 100 H 98 08/26/18 21:57 107 H 98 08/26/18 21:52 111 H 98 08/26/18 21:47 98 H 98 08/26/18 21:42 102 H 99 08/26/18 21:38 104 H 162/91 08/26/18 21:37 104 H 98 08/26/18 21:32 101 H 98 08/26/18 21:27 106 H 99 08/26/18 21:22 99 H 98 08/26/18 21:17 103 H 98 08/26/18 21:12 98 H 98 08/26/18 21:08 102 H 154/95 08/26/18 21:07 100 H 99 08/26/18 21:02 104 H 99 08/26/18 20:57 102 H 98 08/26/18 20:52 102 H 99 08/26/18 20:47 100 H 99 08/26/18 20:42 99 H 98 08/26/18 20:37 98 H 145/100 97 08/26/18 20:32 104 H 99 08/26/18 20:27 96 H 98 08/26/18 20:22 96 H 99 08/26/18 20:17 104 H 98 08/26/18 20:11 98 H 98 08/26/18 20:06 93 H 98 08/26/18 20:01 99 H 97 08/26/18 19:56 103 H 98 08/26/18 19:51 96 H 98 08/26/18 19:46 106 H 145/100 98 08/26/18 19:41 92 H 98 08/26/18 19:36 94 H 98 08/26/18 19:31 96 H 98 08/26/18 19:26 101 H 99 08/26/18 19:21 96 H 99 08/26/18 19:16 100 H 99 08/26/18 19:11 96 H 99 08/26/18 19:06 97 H 98 08/26/18 19:01 98 H 98 08/26/18 18:58 96 H 151/98 08/26/18 18:56 94 H 98 08/26/18 18:51 102 H 99 08/26/18 18:46 98 H 99 08/26/18 18:41 98 H 98 08/26/18 18:36 100 H 99 08/26/18 18:31 98 H 99 08/26/18 18:26 98 H 99 08/26/18 18:21 95 H 99 08/26/18 18:16 99 H 99 08/26/18 18:11 99 H 99 08/26/18 18:06 104 H 97 08/26/18 18:01 98 H 99 08/26/18 17:58 101 H 126/93 08/26/18 17:56 101 H 99 08/26/18 17:51 109 H 99 08/26/18 17:46 93 H 99 08/26/18 17:41 92 H 99 08/26/18 17:12 98.8 F 105 H 16 131/91 99 08/26/18 17:01 16 08/26/18 16:00 98.4 F 98 H 15 128/89 99 08/26/18 15:45 119 H 14 137/102 100 08/26/18 15:30 116 H 14 124/87 100 08/26/18 15:15 113 H 14 119/99 99 08/26/18 15:10 106 H 14 126/86 100 08/26/18 15:05 101 H 14 126/86 99 08/26/18 14:54 98 F 98 H 15 116/80 99 08/26/18 13:30 116 H 100 08/26/18 13:25 98 H 100 08/26/18 13:24 106 H 138/87 08/26/18 13:20 100 H 100 08/26/18 13:15 99 H 100 08/26/18 13:10 99 H 100 08/26/18 13:05 94 H 100 08/26/18 13:00 90 100 08/26/18 12:55 95 H 100 08/26/18 12:50 100 H 100 08/26/18 12:45 85 100 08/26/18 12:40 89 100 08/26/18 12:35 90 100 08/26/18 12:30 88 100 08/26/18 12:25 91 H 100 08/26/18 12:24 89 154/95 08/26/18 12:19 89 100 Intake and Output 08/26/18 08/27/18 08/27/18 23:59 07:59 15:59 Intake Total 850 1000 Output Total 800 600 Balance 50 -600 1000 Intake: IV 550 1000 ANCEF/NS 1 GM/50 ML 1 gm 50 In 50 ml @ 100 mls/hr IV Q8H JOSE ALEJANDRO Rx#:[id number] D5lr 1,000 ml @ 125 mls/ 1000 hr IV DIRECT JOSE ALEJANDRO Rx#: [id number] Oral 300 Output: Urine 800 600 Indwelling Catheter 600 600 Other: Total, Intake Amount 300 Total, Output Amount 600 300 - Exam Cardiovascular: Present: Regular rate, Normal S1, Normal S2 Lungs: Present: Clear to auscultation Abdomen: Present: normal appearance, soft, normal bowel sounds. Absent: distention, tenderness, guarding, rigidity Uterus: Present: normal, firm, fundal height below umbilicus. Absent: bogginess, tenderness Extremities: Present: normal, edema (mild pedal ). Absent: tenderness Incision: Present: normal, dry, intact, dressed - Labs Labs: Abnormal lab results 08/26/18 Range/Units 18:05 Magnesium 3.00 H (1.7-2.3) mg/dL
[2018-08-27 14:16] LABS: Alanine Aminotransferase 37 units/L (7-56); Albumin 2.6 g/dL (3.9-5); BUN/Creatinine Ratio 18; Blood Urea Nitrogen 7 mg/dL (7-17); Calcium 8.2 mg/dL (8.4-10.2); Hemolysis Index 16
[2018-08-27] MEDS: PERCOCET 5/325 PO PRN (19:46)
[2018-08-28] MEDS: MILK OF MAGNESIA PO PRN ×2 (02:46→16:20)
[2018-08-28] MEDS: MYLICON PO PRN (02:46)
[2018-08-28] MEDS: PERCOCET 5/325 PO PRN ×3 (02:47→16:20)
--- NOTE | 2018-08-28 14:01 | Progress Note ---
Assessment and Plan A; day 2 S/P primary low transverse section. Preeclampsia. P: Encouraged ambulation. Continue current management. Subjective - Subjective Date of service: 08/28/18 Principal diagnosis: /postop day 2 S/P primary low transverse section Interval history: /postop day 2 S/P primary low transverse section. Preeclampsia. BPs are stable. Patient denies headache, visual disturbance, nausea or vomiting, edema, chest pain, shortness of breath, cough, abdominal pain, leg pain, or heavy vaginal bleeding. Patient reports: appetite normal, voiding normally, pain well controlled, flatus, ambulating normally, no dizzy ambulation, no bowel movement, no nauseated [place]: doing well Objective - Vital Signs Latest vital signs: Vital Signs Temp Pulse Resp BP BP Pulse Ox 08/28/18 07:32 98.6 F 103 H 18 128/80 08/28/18 04:50 98.3 F 102 H 18 112/74 95 08/28/18 01:00 98.7 F 99 H 18 126/87 98 08/27/18 18:20 98.1 F 87 20 145/87 08/27/18 16:35 101 H 136/91 08/27/18 16:34 79 L 08/27/18 16:17 74 L 08/27/18 16:08 74 88 08/27/18 16:03 32 L 85 08/27/18 16:01 89 08/27/18 15:50 56 L 80 L 08/27/18 15:49 77 L 08/27/18 15:40 83 L 08/27/18 15:37 80 L 08/27/18 15:34 171 H 87 08/27/18 15:31 81 L 08/27/18 15:20 60 0 L 08/27/18 15:08 107 H 127/94 08/27/18 15:05 82 L 08/27/18 14:59 76 87 08/27/18 14:58 87 08/27/18 14:52 85 08/27/18 14:51 82 L 08/27/18 14:38 100 H 124/91 08/27/18 14:27 153 H 82 L 08/27/18 14:21 90 08/27/18 14:15 74 L 08/27/18 14:08 107 H 127/92 Intake and Output 08/27/18 08/28/18 08/28/18 23:59 07:59 15:59 Intake Total 420 480 Output Total 1300 400 Balance -880 80 Intake: Oral 240 480 Intake, Free Water 180 Output: Urine 1300 400 Indwelling Catheter 900 Void 400 400 Other: Total, Intake Amount 240 360 Total, Output Amount 400 400 - Exam Cardiovascular: Present: Regular rate, Normal S1, Normal S2, No murmurs Lungs: Present: Clear to auscultation Abdomen: Present: normal appearance, soft, normal bowel sounds. Absent: distention, tenderness, guarding, rigidity Uterus: Present: normal, firm, fundal height below umbilicus. Absent: bogginess, tenderness Extremities: Present: normal. Absent: tenderness, edema Incision: Present: normal, dry, intact - Labs Labs: Abnormal lab results 08/27/18 08/27/18 08/28/18 Range/Units 12:40 12:40 00:11 Creatinine 0.4 L (0.7-1.2) mg/dL Glucose 120 H (65-100) mg/dL POC Glucose 185 H (70-105) Calcium 8.2 L (8.4-10.2) mg/dL Magnesium 3.70 H (1.7-2.3) mg/dL AST 87 H (5-40) units/L Alkaline Phosphatase 141 H (35-129) units/L Total Protein 4.8 L (6.3-8.2) g/dL Albumin 2.6 L (3.9-5) g/dL
[2018-08-29] MEDS: PERCOCET 5/325 PO PRN ×2 (01:29→09:56)
[2018-08-29] MEDS: MYLICON PO PRN (01:31)
[2018-08-29] MEDS: MILK OF MAGNESIA PO PRN (01:36)
[2018-08-29] MEDS ORDERED: NORMODYNE PO SCH (10:00)
--- NOTE | 2018-08-29 10:17 | Progress Note ---
Assessment and Plan - Patient Problems (1) S/P primary low transverse Current Visit: Yes Status: Acute Plan to address problem: POD 3 - stable Discharge to home today Follow up at [facility] as needed or in 1 week for BP and incision check (2) Pre-eclampsia Current Visit: Yes Status: Acute Qualifiers: Trimester: third trimester Qualified Code(s): O14.93 - Unspecified pre- eclampsia, third trimester Plan to address problem: Last 3 BPs: 137/92, 124/78, 133/91 Completed magnesium sulfate therapy Antihypertensive therapy initiated with Labetalol 100mg PO BID Reviewed signs and symptoms of pre-eclampsia (3) Gestational diabetes mellitus (GDM) Current Visit: Yes Status: Acute Qualifiers: Trimester: third trimester Plan to address problem: Last 2 blood glucose levels: 89 and 91 Strict ADA diet encouraged Subjective - Subjective Date of service: 08/29/18 Principal diagnosis: POD #3; s/p Primary LTCS; PIH, GDM Interval history: see H&P, OB Progress Notes, Operative Report and PP/RENDERER Progress Notes Patient reports: appetite normal, voiding normally, pain well controlled, flatus, bowel movement, ambulating normally, other (denies headache, visual disturbances or RUQ pain), no dizzy ambulation : doing well, nursing well Objective - Vital Signs Latest vital signs: Vital Signs Temp Pulse Resp BP BP Pulse Ox 08/29/18 09:56 14 08/29/18 09:55 102 H 133/91 08/29/18 08:34 98.3 F 102 H 18 133/91 97 08/29/18 05:48 97.5 F L 90 18 124/78 99 08/29/18 00:23 98.0 F 103 H 18 137/92 94 08/28/18 16:24 98.8 F 107 H 18 134/90 Intake and Output 08/28/18 08/29/18 08/29/18 23:59 07:59 15:59 Intake Total 360 480 360 Balance 360 480 360 Intake: Oral 360 480 120 Intake, Free Water 240 Other: Total, Intake Amount 360 480 120 # Voids Void 1 1 # Bowel Movements 1 - Exam Cardiovascular: Present: Regular rate Lungs: Present: Clear to auscultation Abdomen: Present: normal appearance, soft Vulva: both: normal Uterus: Present: normal, firm, fundal height below umbilicus Extremities: Present: normal Incision: Present: normal, dry, intact Comments: steri strips in place - Labs Labs: Abnormal lab results 08/28/18 Range/Units 18:30 POC Glucose 172 H (70-105)
--- NOTE | 2018-08-29 10:27 | Discharge Summary ---
Providers - Providers Date of Admission: 08/24/18 17:37 Date of discharge: 08/29/18 Attending physician: KARTHIKEYAN CHAVEZ MD Primary care physician: KARTHIKEYAN CHAVEZ MD Hospitalization Reason for admission: IUP - , induction of labor, other (pre-eclampsia) Delivery: Procedure: primary low transverse Episiotomy: none Laceration: none Incision: normal, dry, intact, other (steri strips in place) complications: none Discharge diagnosis: delivery baby: male Hospital course: Uncomplicated Condition at discharge: Stable Disposition: DC-01 TO HOME OR SELFCARE - Discharge Diagnoses (1) S/P primary low transverse Status: Acute (2) Pre-eclampsia Status: Acute Qualifiers: Trimester: third trimester Qualified Code(s): O14.93 - Unspecified pre- eclampsia, third trimester Comment: Continue Labetalol 100mg PO BID (3) Gestational diabetes mellitus (GDM) Status: Acute Qualifiers: Trimester: third trimester Comment: Blood glucose stable Plan - Discharge Medications Prescriptions: Ferrous Sulfate [Feosol 325 MG tab] 325 mg PO BID #60 tablet Labetalol [Labetalol 100mg TAB] 100 mg PO BID #30 tablet Ibuprofen [Motrin] 800 mg PO Q8HR PRN #30 tablet PRN Reason: Pain, Mild (1-3) HYDROcodone/APAP 5-325 [[place] 5/325] 1 each PO Q6HR PRN #30 tablet PRN Reason: Pain Vit-Fe Fumar-FA [ Vitamin] 1 tab PO QDAY #30 tablet - Provider Discharge Summary Activity: routine, no sex for 6 weeks, no heavy lifting 4 weeks, no strenuous exercise Diet: routine Instructions: routine Additional instructions: [] Smoking cessation referral if applicable(refer to patient education folder for contact #) [] Refer to [facility] Booklet Call your doctor immediately for: * Fever > 100.5 * Heavy vaginal bleeding ( >1 pad per hour) * Severe persistent headache * Shortness of breath * Reddened, hot, painful area to leg or breast * Drainage or odor from incision. * Keep incision clean and dry at all times and follow doctor's instructions regarding bathing/showering - Follow up plan Follow up: KARTHIKEYAN CHAVEZ MD [Primary Care Provider] - 7 Days (Follow up at [facility] as needed or in 1 week for BP and incision check)
[2018-08-29 17:46] VITALS: BP 137/90
== END 2018-08-29 16:45 | disposition home or self-care (01) | DRG 786 ==
LOC: TRG 11:10 → LD 17:37 → OB 08-26 16:12 → LD 08-26 17:43 → OB 08-27 19:24
PROVIDERS: ADMIT Obstetrics & Gynecology; ATTEND Obstetrics & Gynecology
PROC: 3E0P7VZ Introduction of Hormone into Female Reproductive, Via Natural or Artificial Opening (ICD-10-PCS; 2018-08-24)
PROC: 10D00Z1 Extraction of Products of Conception, Low, Open Approach (ICD-10-PCS; principal; 2018-08-26)
DX: O24.425 Gestational diabetes mellitus in childbirth, controlled by oral hypoglycemic drugs (principal); O60.14X0 Preterm labor third trimester with preterm delivery third trimester, not applicable or unspecified; O61.9 Failed induction of labor, unspecified; O14.94 Unspecified pre-eclampsia, complicating childbirth; O99.62 Diseases of the digestive system complicating childbirth; O99.214 Obesity complicating childbirth; E66.9 Obesity, unspecified; K21.9 Gastro-esophageal reflux disease without esophagitis; Z3A.36 36 weeks gestation of pregnancy; Z37.0 Single live birth
CPT/HCPCS: 36415; 59025; 76815; 76819; 80053; 81001; 82565; 82570; 82962; 83615; 83735; 84156; 84450; 84460; 84550; 85014; 85018; 85027; 86850; 86900; 86901; G0378; C9250; J0360; J0690; J1885; J2590; J2765; J3010; J3475; J7120; J7121

== ENCOUNTER 2018-09-03 12:13 | Emergency (ER) | payer SELFPAY ==
[2018-09-03 12:18] VITALS: BP 136/98
--- NOTE | 2018-09-03 12:19 | Emergency Department Report ---
Blank Doc - Documentation Documentation: 27 y/o female s/p 08-26-2018 c/o of pain and swelling of suture site w ith discharge from wound. Was seen at [facility] 2 days ago for swelling was told all was well but now wound is drainage. No pain. Discharge is a clear blood tinge yellow. Plan: Evaluation for possible ultrasound, labs or CT.
[2018-09-03] MEDS ORDERED: NACL 0.9% 1000 ML 1,000 ML IV ONE (12:33)
--- NOTE | 2018-09-03 12:38 | Emergency Department Report ---
ED General Adult HPI - General Chief complaint: Abdominal Pain Stated complaint: C SECTION LEAKING Time Seen by Provider: 09/03/18 12:16 Source: patient, family Mode of arrival: Ambulatory Limitations: Language Barrier - History of Present Illness Initial comments: 27-year-old female presents to the ED with complaint of fluid leaking from C- section incision site. Patient underwent 8 days ago. States began noticing leakage from the left side of her on yesterday. Patient denies fever. States fluid is watery, bloody and yellow, no purulent discharge reported. Denies abdominal pain. OB: [facility] -: days(s) (1) Location: abdomen Radiation: non-radiation Consistency: intermittent Improves with: immobilization Worsens with: movement Associated Symptoms: denies: fever/chills - Related Data Previous Rx's Medication Instructions Recorded Last Taken Type Ferrous Sulfate [Feosol 325 MG tab] 325 mg PO BID #60 tablet 08/26/18 Unknown Rx HYDROcodone/APAP 5-325 [[place] 1 each PO Q6HR PRN #30 tablet 08/26/18 Unknown Rx 5/325] Ibuprofen [Motrin] 800 mg PO Q8HR PRN #30 tablet 08/26/18 Unknown Rx Vit-Fe Fumar-FA [ 1 tab PO QDAY #30 tablet 08/26/18 Unknown Rx Vitamin] Labetalol [Labetalol 100mg TAB] 100 mg PO BID #30 tablet 08/29/18 Unknown Rx Sulfamethoxazole/Trimethoprim 1 each PO BID 10 Days #20 tablet 09/03/18 Unknown Rx [Bactrim DS TAB] Allergies Allergy/AdvReac Type Severity Reaction Status Date / Time No Known Allergies Allergy Verified 09/03/18 12:14 ED Review of Systems ROS: Stated complaint: C SECTION LEAKING Other details as noted in HPI Comment: All other systems reviewed and negative Constitutional: denies: chills, fever Gastrointestinal: denies: abdominal pain ED Past Medical Hx - Past Medical History Hx Hypertension: No Hx Heart Attack/AMI: No Hx Diabetes: No Hx Deep Vein Thrombosis: No Hx Liver Disease: No Hx Renal Disease: No Hx Sickle Cell Disease: No Hx Seizures: No Hx Asthma: No Hx COPD: No Hx HIV: No - Surgical History Hx Pacemaker: No Hx Internal Defibrillator: No - Social History Smoking Status: Never Smoker Substance Use Type: None - Medications Home Medications: Home Medications Medication Instructions Recorded Confirmed Last Taken Type Ferrous Sulfate [Feosol 325 MG tab] 325 mg PO BID #60 tablet 08/26/18 Unknown Rx HYDROcodone/APAP 5-325 [[place] 1 each PO Q6HR PRN #30 tablet 08/26/18 Unknown Rx 5/325] Ibuprofen [Motrin] 800 mg PO Q8HR PRN #30 tablet 08/26/18 Unknown Rx Vit-Fe Fumar-FA [ 1 tab PO QDAY #30 tablet 08/26/18 Unknown Rx Vitamin] Labetalol [Labetalol 100mg TAB] 100 mg PO BID #30 tablet 08/29/18 Unknown Rx Sulfamethoxazole/Trimethoprim 1 each PO BID 10 Days #20 tablet 09/03/18 Unknown Rx [Bactrim DS TAB] ED Physical Exam - General Limitations: Language Barrier General appearance: alert, in no apparent distress - Head Head exam: Present: atraumatic, normocephalic - Eye Eye exam: Present: normal appearance - ENT ENT exam: Present: mucous membranes moist - Neck Neck exam: Present: normal inspection - Respiratory Respiratory exam: Present: normal lung sounds bilaterally. Absent: respiratory distress - Cardiovascular Cardiovascular Exam: Present: normal rhythm, tachycardia (slightly tachy) - GI/Abdominal GI/Abdominal exam: Present: soft, other ( incision site appears intact, but there is very small 0.5 cm area on left side of incision that appears to be draining small amt of serosanguinous fluid, no foul odor present). Absent: distended, tenderness - Extremities Exam Extremities exam: Present: normal inspection - Neurological Exam Neurological exam: Present: alert, oriented X3 - Psychiatric Psychiatric exam: Present: normal affect, normal mood - Skin Skin exam: Present: warm, dry ED Course Vital Signs 09/03/18 12:17 Temperature 98.3 F Pulse Rate 102 H Respiratory 18 Rate Blood Pressure 136/98 O2 Sat by Pulse 97 Oximetry - Consultations Consultation #1: 09/03/18 15:20 Spoke w/ Dr Boswell. Wants placement of gauze wick. Pt to f/u in office on Wednesday. Discharge w/ abx. ED Medical Decision Making - Lab Data Result diagrams: 09/03/18 12:33 09/03/18 12:33 - Radiology Data Radiology results: report reviewed, image reviewed - Medical Decision Making 8 days ago, fluid leaking from incision site. Fluid collection on CT, seroma vs hematoma. Likely not abscess as pt afebrile, WBCs normal, and fluid appears serosanguinous, not purulent. Gauze wick placed, dressing placed. Rx given for bactrim. Pt instructed to f/u in [facility] office on Wednesday, in 2 days, for dressing change - Differential Diagnosis abscess, hematoma, seroma Critical care attestation.: If time is entered above; I have spent that time in minutes in the direct care of this critically ill patient, excluding procedure time. ED Disposition Clinical Impression: Seroma after procedure, Wound dehiscence Disposition: TO HOME OR SELFCARE Is pt being admited?: No Condition: Stable Instructions: Wound Dehiscence (ED) Prescriptions: Sulfamethoxazole/Trimethoprim [Bactrim DS TAB] 1 each PO BID 10 Days #20 tablet Referrals: [facility] [Provider Group] - 09/05/18 TIFFANY POLK MD [Staff Physician] - 09/05/18 Time of Disposition: 15:25
[2018-09-03 13:13] LABS: Basophils % (Auto) 0.5 % (0.0-1.8); Eosinophils # (Auto) 0.3 K/mm3 (0.0-0.4); Eosinophils % (Auto) 3.4 % (0.0-4.3); Hemoglobin 12.6 gm/dl (10.1-14.3); Lymphocytes # (Auto) 1.3 K/mm3 (1.2-5.4); Lymphocytes % (Auto) 15.4 % (13.4-35.0); Mean Corpuscular HGB Conc 33 % (30-34); Mean Corpuscular Volume 84 fl (79-97); Monocytes # (Auto) 0.6 K/mm3 (0.0-0.8); Monocytes % (Auto) 7.6 % (0.0-7.3); Platelet Count 470 K/mm3 (140-440); Red Cell Distribution Width 16.9 % (13.2-15.2)
[2018-09-03 13:17] LABS: BUN/Creatinine Ratio 15; Blood Urea Nitrogen 9 mg/dL (7-17); Calcium 9.5 mg/dL (8.4-10.2); Hemolysis Index 11
--- NOTE | 2018-09-03 14:29 | Cat Scan Report ---
PROCEDURE: CT ABDOMEN PELVIS W CON TECHNIQUE: Computerized axial tomography of the abdomen and pelvis was performed after the IV inject ion of iodinated nonionic contrast. CT DOSE LENGTH PRODUCT: 1618.7 mGycm HISTORY: s/p 08/26; fluid leaking from wound COMPARISONS: OB ultrasound 08 24 2018 . FINDINGS: No acute lung base finding. No acute fracture. Normal-appearing liver, gallbladder, adrenals, pancrea s, and spleen. Intact normal caliber abdominal aorta and IVC. A nonspecific, smoothly marginated, low density, simple appearing right renal lesion is statistically most likely a cyst. It is too small to characterize. Otherwise normal-appearing kidneys and proximal ureters. Distal ureters are obscured by adjacent pelvic structures. Postoperative fat stranding in the abdominal wall subcutaneous fat. Slight edema of the rectus abdomi nis muscle. In the region of the low, transverse incision/wound, there is a nonspecific slightly irregularly nancy inated fluid collection in the subcutaneous fat just deep to the incision site with AP dimension of 2 .3 cm and transverse dimension up to 10.7 cm. This may be postoperative seroma or hematoma. Different ial includes subcutaneous abdominal wall abscess although the fluid collection contains no air bubble s. No inguinal hernia. No retroperitoneal adenopathy. No evidence of mesenteric mass. Normal-appearing s tomach and duodenum. No small bowel distention in the abdomen and pelvis. No pelvic free fluid. Normal-appearing urinary bladder and adnexa. Uterus is enlarged compatible with recent status. Normal-appearing rectum and sigmoid colon. No gross ascites, free air, or colonic distention. Normal-appearing cecum, terminal ileum, and visible portion of the appendix. IMPRESSION: Fluid collection in the anterior lower abdominal wall may be postoperative seroma or hematoma. Differ ential includes subcutaneous abdominal wall abscess but the fluid collection contains no air bubbles, is slightly irregularly marginated, and is without a well-defined enhancing capsule Slight edema of the rectus abdominis muscle and slight postoperative fat stranding throughout the abd ominal wall subcutaneous fat Uterus is enlarged compatible with recent status This document is electronically signed by Rokc Guzmán MD., September 03 2018 02:27:44 PM ET
== END 2018-09-03 16:21 | disposition home or self-care (01) ==
LOC: ED 12:13
DX: O90.0 Disruption of cesarean delivery wound (principal); K91.873 Postprocedural seroma of a digestive system organ or structure following other procedure
CPT/HCPCS: 36415; 74177; 80048; 85025; 96360; 96361; 99284; J7030; Q9967

== ENCOUNTER 2020-07-16 17:12 | Inpatient (IN) | payer OTHER ==
[2020-07-16] MEDS ORDERED: CARBOPROST TROMETHAMINE 250 MCG/1 ML INJ IM PRN (17:52)
[2020-07-16] MEDS ORDERED: miSOPROStol 200 MCG TAB PR PRN (17:52)
[2020-07-16] MEDS ORDERED: ONDANSETRON 4 MG/2 ML INJ IV PRN ×3 (17:52→22:26)
[2020-07-16] MEDS ORDERED: TERBUTALINE 1 MG/1 ML INJ SUB-Q PRN (17:52)
[2020-07-16] MEDS ORDERED: ePHEDrine SULFATE 50 MG/1 ML INJ IV PRN (17:52)
[2020-07-16] MEDS ORDERED: METHYLERGONOVINE MALEATE 0.2 MG/ML VIAL IM PRN (17:52)
[2020-07-16] MEDS ORDERED: MINERAL OIL 30 ML ORAL LIQD PO PRN (17:52)
[2020-07-16] MEDS ORDERED: LACTATED RINGERS 1,000 ML IV SCH (18:00)
[2020-07-16] MEDS ORDERED: OXYTOCIN DRIP 30 UNITS/500 ML BAG IV SCH ×3 (18:00→23:00)
[2020-07-16] MEDS ORDERED: LIDOCAINE (2%) 20 MG/1 ML VIAL 20 ML MDV INFILTRATI ONE (18:52)
[2020-07-16] MEDS ORDERED: ceFAZolin/Water 2 GM/20 ML 2 GM/20 ML SYRINGE IV ONE (18:58)
[2020-07-16] MEDS ORDERED: BICITRA ORAL LIQD 30ML PO ONE (19:00)
[2020-07-16] MEDS ORDERED: FAMOTIDINE 20 MG/2 ML INJ IV NR (19:00)
[2020-07-16] MEDS ORDERED: METOCLOPRAMIDE 10 MG/2 ML INJ IV NR (19:00)
[2020-07-16] MEDS ORDERED: MAGNESIUM SULFATE 4 GM/100 ML BAG IV ONE (19:20)
[2020-07-16 19:35] LABS: Hematocrit 24.8 % (30.3-42.9); Mean Corpuscular HGB Conc 32 % (30-34); Mean Corpuscular Volume 70 fl (79-97); Platelet Count 383 K/mm3 (140-440); Red Blood Count 3.53 M/mm3 (3.65-5.03)
[2020-07-16] MEDS: MAGNESIUM SULFATE 40GM/1000ML 40 GM/1,000 ML BAG IV SCH (20:10)
--- NOTE | 2020-07-16 20:26 | Anesthesia Day of Surgery ---
Anesthesia Day of Surgery - Day of Surgery Patient Examined: Yes Patient H&P Reviewed: Yes Patient is NPO: Yes Beta Blockers: No Cardiac Clearance: No Pulmonary Clearance: No Ozzie's Test: N/A
[2020-07-16] MEDS ORDERED: HYDROmorphone 1 MG/1 ML INJ IV PRN (20:28)
[2020-07-16] MEDS ORDERED: NALOXONE 0.4 MG/1 ML INJ IV PRN ×2 (20:28→22:26)
--- NOTE | 2020-07-16 20:28 | Anesthesia Consultation ---
Anesthesia Consult and Med Hx Date of service: 07/16/20 - Airway Anesthetic Teeth Evaluation: Poor ROM Head & Neck: Adequate Mental/Hyoid Distance: Adequate Mallampati Class: Class II Intubation Access Assessment: Probably Good - Pulmonary Exam CTA: Yes - Cardiac Exam Cardiac Exam: RRR - Pre-Operative Health Status ASA Pre-Surgery Classification: ASA3 Proposed Anesthetic Plan: Spinal - Pulmonary Hx Smoking: No Hx Asthma: No Hx Respiratory Symptoms: No SOB: No COPD: No Hx Pneumonia: No Hx Sleep Apnea: No - Cardiovascular System Hx Hypertension: Yes (Pre-Eclampsia) Hx Coronary Artery Disease: No Hx Heart Attack/AMI: No Hx Angina: No Hx Percutaneous Transluminal Coronary Angioplasty (PTCA): No Hx Cardia Arrhythmia: No Hx Pacemaker: No Hx Internal Defibrillator: No Hx Valvular Heart Disease: No Hx Heart Murmur: No Hx Peripheral Vascular Disease: No - Central Nervous System Hx Neuromuscular Disorder: No Hx Seizures: No CVA: No Hx Back Pain: Yes Hx Psychiatric Problems: No - Gastrointestinal Hx Ulcer: No Hx Gastroesophageal Reflux Disease: Yes - Endocrine Hx Renal Disease: No Hx End Stage Renal Disease: No Hx Cirrhosis: No Hx Liver Disease: No Hx Insulin Dependent Diabetes: No Hx Non-Insulin Dependent Diabetes: No Hx Thyroid Disease: No Hx Hypothyroidism: No Hx Hyperthyroidism: No - Hematic Hx Anemia: No Hx Sickle Cell Disease: No - Other Systems Hx Alcohol Use: No Hx Substance Use: No Hx Cancer: No Hx Obesity: Yes
[2020-07-16] MEDS ORDERED: ceFAZolin/STERILE WATER 2 GM/20 ML SYRINGE IV ONE (20:40)
[2020-07-16] MEDS ORDERED: ONDANSETRON 4 MG/2 ML INJ IV ONE (21:00)
[2020-07-16] MEDS ORDERED: LACTATED RINGERS 1000 ML IV SOLN IV ONE ×2 (21:08→21:09)
[2020-07-16] MEDS ORDERED: PHENYLEPHRINE/NS 1,000 MCG/10 ML SYRINGE (OR USE) IV ONE (21:08)
[2020-07-16] MEDS ORDERED: dexAMETHasone 20 MG/5 ML VIAL ONE (21:09)
[2020-07-16] MEDS ORDERED: BUPIVACAINE/PF (0.5%) 5 MG/1 ML 30 ML VIAL INFILTRATI ONE (21:09)
[2020-07-16] MEDS ORDERED: SODIUM CHLORIDE 0.9% 100 ML ONE (21:35)
[2020-07-16] MEDS ORDERED: ONDANSETRON 4 MG/2 ML INJ ONE (22:00)
[2020-07-16] MEDS ORDERED: KETOROLAC 30 MG/1 ML INJ ONE (22:05)
[2020-07-16] MEDS ORDERED: BUPIVACAINE /DEX-WATER 0.75% (2 ML) AMPULE INFILTRATI ONE (22:06)
[2020-07-16] MEDS ORDERED: SIMETHICONE 80 MG CHEW TAB PO PRN (22:26)
[2020-07-16] MEDS ORDERED: WITCH HAZEL/ GLYCERIN PAD TP PRN (22:26)
[2020-07-16] MEDS ORDERED: MORPHINE 2 MG/1 ML INJ IV PRN (22:26)
[2020-07-16] MEDS ORDERED: ACETAMINOPHEN 325 MG TAB PO PRN (22:26)
[2020-07-16] MEDS ORDERED: LANOLIN/ZINC/DIMETHICONE (LANSINOH) 7 GM TP PRN (22:26)
[2020-07-16] MEDS ORDERED: IBUPROFEN 800 MG TAB PO PRN (22:26)
[2020-07-16] MEDS ORDERED: HYDROcodone/ACETAMINOPHEN 5-325 MG TAB PO PRN (22:26)
[2020-07-16] MEDS ORDERED: MORPHINE 4 MG/1 ML INJ IV PRN (22:26)
[2020-07-16] MEDS ORDERED: KETOROLAC 30 MG/1 ML INJ IV PRN (22:26)
--- NOTE | 2020-07-16 22:43 | Procedure Note ---
Date of procedure: 07/16/20 Pre-op diagnosis: PIH,37 WEEKS IUP, DESIRE FOR STERILIZATION Post-op diagnosis: same Procedure: This is Dr. Bowers dictating operative report on the patient . Time of surgery was [address] De La Rosa Advanced Manager none anesthesia spinal drains Rae specimen placenta and cord baby weight 6 ounces 6 ounces with estimated blood loss of 700 cc IV fluids was 1100 cc urine was 100 cc Apgars were 7 and 9 complications none The patient was taken operatory given a spinal anesthetic adequate for the procedure she was then prepped and draped in usual fashion she had an indwelling Rae catheter. We entered the abdominal cavity and Pfannenstiel incision from the previous section this uterine peritoneum was opened with Metzenbaums a low transverse incision was made lower right segment with this scalpel because of difficulties delivering the baby's vertex we had to extend the uterine incision also had to extend the excisions on the rectus muscles to allow more adequate space for the baby to come out. Subsequently we were able to deliver the vertex (suction cord doubly clamped fetus passed off to the table to the nurses in stable condition cord blood was obtained placenta was then delivered manually uterine region were not able to deliver the uterus rectum normally subsequently the uterus was cleaned with membranes and tissue uterine incision was repaired in 2 layers with first layer within the myometrium using running locking 1-0 Vicryl circular with superficial myometrium running locking 0 Vicryl which included the vesicouterine peritoneum this area was hemostatic to place an adhesion barrier on the lower uterine segment subsequently we used a Frierson to elevate the left fallopian tube up out of the incision a window was made in the broad ligament and within ligated distally and proximally a 2 cm segment of fallopian tube which was removed with Metzenbaums the uterus she has been the fallopian tube was hemostatic. Because we had difficulties finding the right fallopian tubes we did find the right fallopian tube and we elevated right fallopian tube up out of the incision and did a right partial salpingectomy for sterilization on the right side the cut portion fallopian tube was repaired with 0 chromic suture this area was hemostatic tube was dropped back into the abdominal care instrument count and lap and needle count was correct all instruments were from abdominal cavity we then closed the rectus muscles in the midline fascia was closed with running 0 Vicryl subcutaneous tissue repaired with running 2-0 chromic skin was repaired running subcuticular four 0-0 Vicryl on a Jay needle and treated with Dermabond patient tolerated procedure well she was then returned to recovery room in stable condition end of operative note on this patient. Anesthesia: spinal Surgeon: PRETTY BOWERS Estimated blood loss: other (700CCS) IV fluids: 1,100 Urine output: 100 Pathology: none Specimen disposition: discarded Condition: stable Disposition: PACU
[2020-07-16] MEDS ORDERED: D5W/LACTATED RINGERS 1,000 ML IV SCH (23:00)
--- NOTE | 2020-07-16 23:12 | Progress Note ---
Spinal Anesthesia Block - Spinal Anesthesia Block Start Time: 20:48 Stop Time: 20:53 Performed by:: ELENA FERNANDEZ Procedure: Patient IDed, H&P reviewed, all questions and concerns were answered, and consent was signed. Timeout was performed at bedside. Patient in sitting position. Sterile prep and drape was performed. [3] ml of 1% lidocaine skin wheal at L[4]- L [5]. Needle introducer advanced. 25 gauge spinal needle advanced. Clear, free flowing CSF second attempt. negative blood, negative paresthesia. Spinal dose given. All needles removed. Patient tolerated procedure.
--- NOTE | 2020-07-16 23:13 | Progress Note ---
Objective - Constitutional Vitals: Vital Signs - 12hr 07/16/20 07/16/20 07/16/20 17:35 17:44 17:49 Temperature 98.8 F Pulse Rate 97 H 106 H Respiratory 16 Rate Blood Pressure 129/89 Blood Pressure [Left] O2 Sat by Pulse 100 100 Oximetry 07/16/20 07/16/20 07/16/20 17:54 17:59 18:04 Temperature Pulse Rate 100 H 102 H 107 H Respiratory Rate Blood Pressure Blood Pressure [Left] O2 Sat by Pulse 100 100 100 Oximetry 07/16/20 07/16/20 07/16/20 18:09 18:14 18:19 Temperature Pulse Rate 109 H 101 H 102 H Respiratory Rate Blood Pressure Blood Pressure [Left] O2 Sat by Pulse 100 100 100 Oximetry 07/16/20 07/16/20 07/16/20 18:24 18:29 18:34 Temperature Pulse Rate 97 H 94 H 99 H Respiratory Rate Blood Pressure Blood Pressure [Left] O2 Sat by Pulse 100 100 100 Oximetry 07/16/20 07/16/20 07/16/20 19:14 19:16 19:18 Temperature Pulse Rate 106 H 106 H 107 H Respiratory Rate Blood Pressure 130/75 Blood Pressure 130/75 [Left] O2 Sat by Pulse 73 L Oximetry 07/16/20 07/16/20 07/16/20 19:24 19:44 20:13 Temperature Pulse Rate 96 H 86 Respiratory Rate Blood Pressure 120/75 Blood Pressure [Left] O2 Sat by Pulse 93 79 L Oximetry 07/16/20 07/16/20 07/16/20 20:18 20:23 20:28 Temperature Pulse Rate 104 H 101 H 102 H Respiratory Rate Blood Pressure Blood Pressure [Left] O2 Sat by Pulse 100 100 100 Oximetry 07/16/20 07/16/20 07/16/20 22:38 22:39 22:43 Temperature Pulse Rate 95 H 86 90 Respiratory Rate Blood Pressure 100/63 Blood Pressure [Left] O2 Sat by Pulse 99 98 Oximetry 07/16/20 07/16/20 07/16/20 22:48 22:50 22:53 Temperature 98.0 F Pulse Rate 94 H 84 85 Respiratory 12 Rate Blood Pressure 106/67 Blood Pressure [Left] O2 Sat by Pulse 99 99 Oximetry 04/27/21 04/27/21 04/27/21 22:58 23:00 23:03 Temperature Pulse Rate 92 H 85 88 Respiratory Rate Blood Pressure 106/67 Blood Pressure [Left] O2 Sat by Pulse 99 99 Oximetry 07/16/20 23:08 Temperature Pulse Rate 94 H Respiratory Rate Blood Pressure Blood Pressure [Left] O2 Sat by Pulse 99 Oximetry - Labs CBC & Chem 7: 07/16/20 18:00 Labs: Abnormal lab results 07/16/20 Range/Units 18:00 RBC 3.53 L (3.65-5.03) M/mm3 Hgb 8.0 L (10.1-14.3) gm/dl Hct 24.8 L (30.3-42.9) % MCV 70 L (79-97) fl MCH 23 L (28-32) pg RDW 20.0 H (13.2-15.2) % Regional Anesthesia Block - Regional Anesthesia Block Start Time: 22:55 Stop Time: 22:59 Performed By:: ELENA FERNANDEZ Procedure: Patient consented for TAP block for post surgical pain management. Patient identified, monitors placed, and time out performed. TAP identified bilaterally via ultrasound. Skin prepped bilaterally with [chlorhexidine] and [22g stimuplex] needle advanced to the TAP. [Marcaine 0.22% 35ml] injected under ultrasound guidance on the [left] side. [Marcaine 0.22% 35ml] injected under ultrasound guidance on the [right] side. Negative aspiration every 5mL, No change in heart rate or rhythm. Patient tolerated the procedure well. No apparent complications seen.
[2020-07-17] MEDS ORDERED: LACTATED RINGERS 1,000 ML ONE (01:12)
[2020-07-17] MEDS: PRENATAL VIT27-FE FUMARATE-FOLIC ACID VIT TAB PO SCH (09:42)
[2020-07-17 11:02] LABS: Hematocrit 28.1 % (30.3-42.9)
--- NOTE | 2020-07-17 11:46 | Progress Note ---
Assessment and Plan A: POD #1 Preeclampsia GDM A1 Asymptomatic Anemia P: Follow Routine PostOp Orders Continue Magnesium Sulfate 2G/hours x 24 hours Post-Op Continue Standard Magnesium Precautions Continue Accuchecks as ordered May start GDM Diet on May Continue Chewable Iron supplement from home Subjective - Subjective Date of service: 07/17/20 Patient reports: voiding normally (Rae in place; adquate Urine output), pain well controlled, other (Denies HAs. States she is having some dizziness and visual changes that she believes is related to the Magnesium drip) [place]: doing well, bottle feeding (and ) Objective - Vital Signs Latest vital signs: Vital Signs Temp Pulse Resp BP BP Pulse Ox 07/17/20 11:39 86 134/76 07/17/20 11:38 85 99 07/17/20 11:33 86 99 07/17/20 11:28 94 H 98 07/17/20 11:24 89 128/82 07/17/20 11:23 85 98 07/17/20 11:22 97.7 F 20 07/17/20 11:18 87 98 07/17/20 11:13 92 H 98 07/17/20 11:11 92 H 126/74 07/17/20 11:09 90 126/74 07/17/20 11:08 89 98 07/17/20 11:03 91 H 98 07/17/20 10:58 93 H 99 07/17/20 10:54 93 H 120/75 07/17/20 10:53 93 H 98 07/17/20 10:48 94 H 98 07/17/20 10:43 94 H 97 07/17/20 10:39 90 118/78 07/17/20 10:38 94 H 98 07/17/20 10:33 94 H 98 07/17/20 10:28 91 H 98 07/17/20 10:27 88 115/75 07/17/20 10:23 93 H 99 07/17/20 10:18 87 98 07/17/20 10:13 86 98 07/17/20 10:09 90 122/69 07/17/20 10:08 90 98 07/17/20 10:03 85 98 07/17/20 09:58 87 99 07/17/20 09:54 87 113/74 07/17/20 09:53 89 98 07/17/20 09:48 91 H 97 07/17/20 09:43 100 H 20 98 07/17/20 09:39 97 H 115/76 07/17/20 09:38 95 H 97 07/17/20 09:33 91 H 97 07/17/20 09:28 88 98 07/17/20 09:24 91 H 115/76 07/17/20 09:23 94 H 98 07/17/20 09:18 95 H 97 07/17/20 09:13 94 H 98 07/17/20 09:09 94 H 122/79 07/17/20 09:08 93 H 97 07/17/20 09:03 92 H 96 07/17/20 08:58 89 98 07/17/20 08:55 95 H 116/79 07/17/20 08:53 96 H 97 07/17/20 08:48 88 98 07/17/20 08:43 93 H 98 07/17/20 08:39 88 117/76 07/17/20 08:38 94 H 97 07/17/20 08:33 88 98 07/17/20 08:28 89 98 07/17/20 08:24 87 115/72 07/17/20 08:23 87 98 07/17/20 08:18 92 H 97 07/17/20 08:13 90 98 07/17/20 08:09 91 H 134/83 07/17/20 08:08 89 98 07/17/20 08:03 88 99 07/17/20 07:58 88 98 07/17/20 07:57 97.8 F 20 98 07/17/20 07:54 90 115/76 07/17/20 07:53 95 H 98 07/17/20 07:48 94 H 98 07/17/20 07:43 90 98 07/17/20 07:39 95 H 118/73 07/17/20 07:38 91 H 98 07/17/20 07:33 89 98 07/17/20 07:28 100 H 98 07/17/20 07:24 90 114/67 07/17/20 07:23 95 H 97 07/17/20 07:18 90 98 07/17/20 07:13 93 H 98 07/17/20 07:09 91 H 113/69 07/17/20 07:08 92 H 98 07/17/20 07:03 92 H 98 07/17/20 06:58 91 H 98 07/17/20 06:54 88 113/70 07/17/20 06:53 98 H 98 07/17/20 06:48 91 H 97 07/17/20 06:43 89 98 07/17/20 06:39 92 H 116/73 07/17/20 06:38 92 H 98 07/17/20 06:33 92 H 98 07/17/20 06:28 91 H 97 07/17/20 06:24 95 H 115/68 07/17/20 06:23 90 97 07/17/20 06:18 91 H 97 07/17/20 06:13 90 98 07/17/20 06:09 90 115/72 07/17/20 06:08 94 H 97 07/17/20 06:03 95 H 97 07/17/20 05:58 92 H 97 07/17/20 05:54 90 112/72 07/17/20 05:53 90 97 07/17/20 05:48 87 97 07/17/20 05:43 90 97 07/17/20 05:39 93 H 128/84 07/17/20 05:38 92 H 97 07/17/20 05:33 90 97 07/17/20 05:28 91 H 97 07/17/20 05:24 86 122/74 07/17/20 05:23 91 H 97 07/17/20 05:18 93 H 97 07/17/20 05:13 92 H 97 07/17/20 05:09 91 H 132/80 07/17/20 05:08 89 98 07/17/20 05:03 92 H 98 07/17/20 04:58 89 98 07/17/20 04:55 89 120/70 07/17/20 04:53 91 H 97 07/17/20 04:48 94 H 97 07/17/20 04:43 90 97 07/17/20 04:39 98 H 119/76 07/17/20 04:38 98 H 97 07/17/20 04:33 92 H 97 07/17/20 04:28 88 97 07/17/20 04:24 90 111/70 07/17/20 04:23 90 98 07/17/20 04:18 92 H 97 07/17/20 04:13 102 H 96 07/17/20 04:09 88 106/62 07/17/20 04:08 88 97 07/17/20 04:03 89 97 07/17/20 03:58 89 97 07/17/20 03:54 90 107/62 07/17/20 03:53 92 H 97 07/17/20 03:48 94 H 97 07/17/20 03:43 88 97 07/17/20 03:39 91 H 105/62 07/17/20 03:38 90 97 07/17/20 03:33 89 97 07/17/20 03:28 90 96 07/17/20 03:24 91 H 101/64 07/17/20 03:23 89 96 07/17/20 03:18 90 97 07/17/20 03:13 89 97 07/17/20 03:09 87 97/61 07/17/20 03:08 88 97 07/17/20 03:03 88 97 07/17/20 02:58 91 H 97 07/17/20 02:54 88 97/61 07/17/20 02:53 92 H 97 07/17/20 02:48 91 H 96 07/17/20 02:43 91 H 97 07/17/20 02:39 90 91/57 07/17/20 02:38 93 H 97 07/17/20 02:33 93 H 97 07/17/20 02:28 94 H 98 07/17/20 02:24 88 88/57 07/17/20 02:23 91 H 97 07/17/20 02:20 78 91 07/17/20 02:18 62 53/27 98 07/17/20 02:15 60 64/35 07/17/20 02:13 63 96 07/17/20 02:08 61 99 07/17/20 02:03 84 99 07/17/20 02:00 91 H 106/65 07/17/20 01:58 87 99 07/17/20 01:53 94 H 98 07/17/20 01:48 88 98 07/17/20 01:45 90 105/62 07/17/20 01:43 89 98 07/17/20 01:38 96 H 99 07/17/20 01:33 91 H 99 07/17/20 01:30 88 107/65 0428/21 01:28 90 99 07/17/20 01:23 89 99 07/17/20 01:18 94 H 99 07/17/20 01:15 97 H 110/69 07/17/20 01:13 98 H 100 07/17/20 01:08 85 99 07/17/20 01:03 86 99 07/17/20 01:00 86 102/59 07/17/20 00:58 85 100 07/17/20 00:53 88 100 07/17/20 00:48 88 100 07/17/20 00:45 90 104/67 07/17/20 00:43 84 100 07/17/20 00:38 93 H 100 07/17/20 00:33 84 99 07/17/20 00:30 83 101/61 07/17/20 00:28 86 100 07/17/20 00:23 80 100 07/17/20 00:18 81 98 07/17/20 00:15 75 95/56 07/17/20 00:13 79 99 07/17/20 00:08 81 99 07/17/20 00:03 78 98 07/17/20 00:00 78 99/62 07/16/20 23:58 82 99 07/16/20 23:53 84 99 07/16/20 23:50 75 12 99/62 07/16/20 23:48 88 100 07/16/20 23:45 76 102/65 07/16/20 23:43 82 99 07/16/20 23:38 85 99 07/16/20 23:36 98.3 F 75 12 99/61 07/16/20 23:33 88 98 07/16/20 23:30 77 99/61 07/16/20 23:28 79 99 07/16/20 23:23 86 99 07/16/20 23:20 75 12 99/61 07/16/20 23:18 91 H 98 07/16/20 23:15 90 106/56 07/16/20 23:13 90 98 07/16/20 23:08 94 H 99 07/16/20 23:05 79 12 106/56 07/16/20 23:03 88 99 07/16/20 23:00 85 106/67 07/16/20 22:58 92 H 99 07/16/20 22:53 85 99 07/16/20 22:50 98.0 F 84 12 106/67 07/16/20 22:48 94 H 99 07/16/20 22:43 90 98 07/16/20 22:39 86 100/63 07/16/20 22:38 95 H 99 07/16/20 20:28 102 H 100 07/16/20 20:23 101 H 100 07/16/20 20:18 104 H 100 07/16/20 20:13 86 79 L 07/16/20 19:44 96 H 120/75 07/16/20 19:24 93 07/16/20 19:18 107 H 73 L 07/16/20 19:16 106 H 130/75 07/16/20 19:14 106 H 130/75 07/16/20 18:34 99 H 100 07/16/20 18:29 94 H 100 07/16/20 18:24 97 H 100 07/16/20 18:19 102 H 100 07/16/20 18:14 101 H 100 07/16/20 18:09 109 H 100 07/16/20 18:04 107 H 100 07/16/20 17:59 102 H 100 07/16/20 17:54 100 H 100 07/16/20 17:49 106 H 100 07/16/20 17:44 97 H 129/89 100 07/16/20 17:35 98.8 F 16 Intake and Output 07/16/20 07/17/20 07/17/20 22:59 06:59 14:59 Intake Total 1300 Output Total 130 1110 850 Balance 1170 -1110 -850 Intake: IV 1300 Output: Urine 130 1110 850 Indwelling Catheter 1000 850 Uretheral (Rae) 30 10 Other: Total, Output Amount 350 300 Weight 71.668 kg Estimated Blood Loss 700 - Exam Breasts: Present: normal Cardiovascular: Present: Regular rate Lungs: Present: Clear to auscultation, Normal air movement Abdomen: Present: normal appearance, soft, normal bowel sounds Uterus: Present: normal, firm, fundal height below umbilicus Extremities: Present: normal Incision: Present: normal, dry, intact - Labs Labs: Abnormal lab results 07/16/20 07/17/20 07/17/20 Range/Units 18:00 08:35 08:50 RBC 3.53 L (3.65-5.03) M/mm3 Hgb 8.0 L (10.1-14.3) gm/dl Hct 24.8 L (30.3-42.9) % MCV 70 L (79-97) fl MCH 23 L (28-32) pg RDW 20.0 H (13.2-15.2) % POC Glucose 140 H (70-105) mg/dL Magnesium 5.90 H (1.7-2.3) mg/dL 07/17/20 Range/Units 10:20 RBC (3.65-5.03) M/mm3 Hgb 9.0 L (10.1-14.3) gm/dl Hct 28.1 L (30.3-42.9) % MCV (79-97) fl MCH (28-32) pg RDW (13.2-15.2) % POC Glucose (70-105) mg/dL Magnesium (1.7-2.3) mg/dL
[2020-07-17] MEDS: FERROUS SULFATE 325 MG TAB PO SCH (12:44)
[2020-07-17] MEDS ORDERED: LACTATED RINGERS 1,000 ML IV SCH (14:30)
[2020-07-17] MEDS: MAGNESIUM SULFATE 40GM/1000ML 40 GM/1,000 ML BAG IV SCH (18:11)
[2020-07-17] MEDS ORDERED: MEASLES, MUMPS & RUBELLA 12,500 UNIT/0.5 ML VACCINE SUB-Q ONE (22:34)
[2020-07-17] MEDS ORDERED: PROMETHAZINE 25 MG RECT SUPP PR PRN (23:14)
[2020-07-17] MEDS ORDERED: ONDANSETRON 4 MG/2 ML INJ IV PRN (23:14)
[2020-07-17] MEDS ORDERED: diphenhydrAMINE 25 MG CAP PO PRN (23:14)
[2020-07-17] MEDS ORDERED: WITCH HAZEL/ GLYCERIN PAD TP PRN (23:14)
[2020-07-17] MEDS ORDERED: PROMETHAZINE 25 MG TAB PO PRN (23:14)
[2020-07-17] MEDS ORDERED: LANOLIN/ZINC/DIMETHICONE (LANSINOH) 7 GM TP PRN (23:14)
[2020-07-17] MEDS ORDERED: MAGNESIUM HYDROXIDE (MOM) ORAL LIQD UDC PO PRN (23:14)
[2020-07-18] MEDS: IBUPROFEN 600 MG TAB PO SCH ×2 (00:32→05:14)
[2020-07-18] MEDS ORDERED: TETANUS,DIPH,PERTUSS(ACELL) VACCINE 0.5 ML SYRINGE IM ONE (06:00)
--- NOTE | 2020-07-18 08:29 | History and Physical Report ---
History of Present Illness Date of examination: 07/16/20 Date of admission: 07/16/20 19:59 Chief complaint: 37 wk IUP WITH PIH Past History Past Medical History: thyroid disease Past Surgical History: section Family/Genetic History: none Social history: single - Obstetrical History Expected Date of Delivery: 08/04/20 Actual Gestation: 37 Week(s) 4 Day(s) : 2 Para: 1 Hx # Term Pregnancies: 1 Number of Pregnancies: 0 Spontaneous Abortions: 0 Induced : 0 Number of Living Children: 1 Medications and Allergies Allergies Allergy/AdvReac Type Severity Reaction Status Date / Time No Known Allergies Allergy Verified 09/03/18 12:14 Home Medications Medication Instructions Recorded Confirmed Last Taken Type Ferrous Sulfate [Feosol 325 MG tab] 325 mg PO BID #60 tablet 08/26/18 07/16/20 Unknown Rx HYDROcodone/APAP 5-325 [[place] 1 each PO Q6HR PRN #30 tablet 08/26/18 07/16/20 Unknown Rx 5/325] Ibuprofen [Motrin] 800 mg PO Q8HR PRN #30 tablet 08/26/18 07/16/20 Unknown Rx Vit-Fe Fumar-FA [ 1 tab PO QDAY #30 tablet 08/26/18 07/16/20 Unknown Rx Vitamin] labetaloL [Labetalol 100mg TAB] 100 mg PO BID #30 tablet 08/29/18 07/16/20 07/16/20 09:00 Rx Sulfamethoxazole/Trimethoprim 1 each PO BID 10 Days #20 tablet 09/03/18 07/16/20 Unknown Rx [Bactrim DS TAB] HYDROcodone/APAP 5-325 [[place] 1 each PO Q4HR PRN #20 tablet 07/17/20 Unknown Rx 5/325] Active Meds: Active Medications Acetaminophen (Acetaminophen 325 Mg Tab) 650 mg PO Q4H PRN PRN Reason: Fever >100.5/BOATENG Hydrocodone Bitart/Acetaminophen (Hydrocodone/Acetaminophen 5-325 Mg Tab) 1 each PO Q6H PRN PRN Reason: Pain, Moderate (4-6) Bisacodyl (Bisacodyl 10 Mg Rect Supp) 10 mg AK BID PRN PRN Reason: Constipation Carboprost Tromethamine (Carboprost Tromethamine 250 Mcg/1 Ml Inj) 250 mcg IM ONCE PRN PRN Reason: Uterine Bleeding Diphenhydramine HCl (Diphenhydramine 25 Mg Cap) 25 mg PO Q6H PRN PRN Reason: Itching Ephedrine Sulfate (Ephedrine Sulfate 50 Mg/1 Ml Inj) 10 mg IV Q2M PRN PRN Reason: Hypotension Last Admin: 07/17/20 02:22 Dose: 10 mg Documented by: Ferrous Sulfate (Ferrous Sulfate 325 Mg Tab) 325 mg PO QDAY [facility] Last Admin: 07/17/20 12:44 Dose: Not Given Documented by: Magnesium Sulfate (Magnesium Sulfate 40gm/1000ml) 40 gm in 1,000 mls @ 50 mls /hr IV DIRECT JOSE ALEJANDRO Last Admin: 07/17/20 18:11 Dose: 2 gm/hr, 50 mls/hr Documented by: Oxytocin/Sodium Chloride (Pitocin/Ns 30 Unit/500ml) 30 units in 500 mls @ 40 mls/hr IV TITR JOSE ALEJANDRO; Protocol Dextrose/Lactated Ringer's (D5lr) 1,000 mls @ 125 mls/hr IV DIRECT JOSE ALEJANDRO Lactated Ringer's (Lactated Ringers) 1,000 mls @ 75 mls/hr IV DIRECT JOSE ALEJANDRO Last Admin: 07/17/20 14:23 Dose: 75 mls/hr Documented by: Ibuprofen (Ibuprofen 600 Mg Tab) 600 mg PO Q6HR [facility] Last Admin: 07/18/20 05:14 Dose: 600 mg Documented by: Ketorolac Tromethamine (Ketorolac 30 Mg/1 Ml Inj) 15 mg IV Q6H PRN PRN Reason: Pain, Mild (1-3) Stop: 07/21/20 22:25 Last Admin: 07/17/20 05:57 Dose: 15 mg Documented by: Labetalol HCl (Labetalol 100 Mg Tab) 100 mg PO BID [facility] Last Admin: 07/17/20 11:11 Dose: 100 mg Documented by: Magnesium Hydroxide (Magnesium Hydroxide (Mom) Oral Liqd Udc) 30 ml PO HS PRN PRN Reason: Constipation Methylergonovine Maleate (Methylergonovine Maleate 0.2 Mg/Ml Vial) 0.2 mg IM ONCE PRN PRN Reason: Uterine Bleeding Mineral Oil (Mineral Oil 30 Ml Oral Liqd) 30 ml PO QHS PRN PRN Reason: Constipation Misoprostol (Misoprostol 200 Mcg Tab) 800 mcg AK ONCE PRN PRN Reason: Uterine Bleeding Morphine Sulfate (Morphine 2 Mg/1 Ml Inj) 2 mg IV Q4H PRN PRN Reason: Pain, Moderate (4-6) Last Admin: 07/17/20 17:16 Dose: 2 mg Documented by: Morphine Sulfate (Morphine 4 Mg/1 Ml Inj) 4 mg IV Q4H PRN PRN Reason: Pain , Severe (7-10) Last Admin: 07/17/20 09:43 Dose: 4 mg Documented by: Multi-Ingredient Ointment (Lanolin/Zinc/Dimethicone (Lansinoh) 7 Gm) 1 applic TP PRN PRN PRN Reason: Sore Nipples Multivitamins/Iron/Calcium ( [id number] Fumarate-Folic Acid Vit Tab) 1 each PO QDAY JOSE ALEJANDRO Last Admin: 07/17/20 09:42 Dose: 1 each Documented by: Naloxone HCl (Naloxone 0.4 Mg/1 Ml Inj) 0.1 mg IV Q2MIN PRN PRN Reason: Res Rate </= 8 or 02 SAT < 92% Ondansetron HCl (Ondansetron 4 Mg/2 Ml Inj) 4 mg IV Q8H PRN PRN Reason: Nausea And Vomiting Promethazine HCl (Promethazine 25 Mg Rect Supp) 25 mg AK Q6H PRN PRN Reason: Nausea And Vomiting Promethazine HCl (Promethazine 25 Mg Tab) 25 mg PO Q6H PRN PRN Reason: Nausea And Vomiting Simethicone (Simethicone 80 Mg Chew Tab) 80 mg PO Q6H PRN PRN Reason: Gas pain Sodium Chloride (Sodium Chloride 0.9% 10 Ml Flush Syringe) 10 ml IV PRN PRN PRN Reason: LINE FLUSH Terbutaline Sulfate (Terbutaline 1 Mg/1 Ml Inj) 0.25 mg SUB-Q ONCE PRN PRN Reason: Hyperstimulation/Hypertonicity Witch Amber/Glycerin (Witch Amber/ Glycerin Pad) 1 each TP PRN PRN PRN Reason: Hemorrhoid/cleansing/soothing Review of Systems All systems: negative - Vital Signs Vital signs: Vital Signs Temp Resp 98.8 F 16 07/16/20 17:35 07/16/20 17:35 Temp Pulse Resp BP Pulse Ox 98.6 F 74 18 114/78 100 07/18/20 04:30 07/18/20 04:30 07/18/20 04:30 07/18/20 04:30 07/17/20 23:40 - Physical Exam Breasts: Cardiovascular: Regular rate, Normal S1, Normal S2 Abdomen: Positive: normal appearance, soft, normal bowel sounds. Negative: distention, tenderness Vulva: both: normal Vagina: Positive: normal moisture. Negative: discharge Cervix: Negative: lesion, discharge Uterus: Positive: enlarged Adnexa: both: normal Anus/Rectum: Positive: normal perianal skin, heme negative. Negative: rectal mass, hemorrhoids Results Result Diagrams: 07/17/20 10:20 Abnormal lab results 07/17/20 07/17/20 07/17/20 Range/Units 08:35 08:50 10:20 Hgb 9.0 L (10.1-14.3) gm/dl Hct 28.1 L (30.3-42.9) % POC Glucose 140 H (70-105) mg/dL Magnesium 5.90 H (1.7-2.3) mg/dL 07/17/20 07/17/20 07/17/20 Range/Units 13:48 14:52 18:51 Hgb (10.1-14.3) gm/dl Hct (30.3-42.9) % POC Glucose 128 H 109 H (70-105) mg/dL Magnesium 6.00 H (1.7-2.3) mg/dL 07/17/20 Range/Units 19:58 Hgb (10.1-14.3) gm/dl Hct (30.3-42.9) % POC Glucose (70-105) mg/dL Magnesium 6.50 H (1.7-2.3) mg/dL All other labs normal. Assessment and Plan 37 WK IUP WITH PIH PLAN REPEAT C/ AND BTL.
[2020-07-18] MEDS: PRENATAL VIT27-FE FUMARATE-FOLIC ACID VIT TAB PO SCH (09:11)
[2020-07-18] MEDS: FERROUS SULFATE 325 MG TAB PO SCH (09:11)
--- NOTE | 2020-07-18 09:48 | Progress Note ---
Assessment and Plan A: S/P LTCS Preeclampsia, GDM Asymptomatic anemia p: D/c home today if stable Subjective - Subjective Date of service: 07/18/20 Principal diagnosis: s/p LTCS Patient reports: appetite normal, voiding normally, pain well controlled, flatus, ambulating normally : doing well, bottle feeding Objective - Vital Signs Latest vital signs: Vital Signs Temp Pulse Resp BP BP Pulse Ox 07/18/20 08:30 97.9 F 93 H 18 128/88 99 07/18/20 04:30 98.6 F 74 18 114/78 07/17/20 23:40 98.2 F 98 H 20 124/83 100 07/17/20 22:43 97 H 92 07/17/20 22:39 98 H 112/70 07/17/20 22:38 96 H 99 07/17/20 22:33 98 H 109/63 100 07/17/20 22:28 95 H 99 07/17/20 22:24 93 H 112/70 07/17/20 22:23 99 H 99 07/17/20 22:18 94 H 99 07/17/20 22:13 101 H 99 07/17/20 22:09 100 H 112/69 07/17/20 22:08 98 H 99 07/17/20 22:03 96 H 99 07/17/20 21:58 100 H 100 07/17/20 21:54 92 H 108/68 07/17/20 21:53 96 H 98 07/17/20 21:48 99 H 99 07/17/20 21:43 104 H 99 07/17/20 21:39 106 H 112/73 07/17/20 21:38 108 H 98 07/17/20 21:33 105 H 98 07/17/20 21:28 100 H 97 07/17/20 21:24 97 H 107/68 07/17/20 21:23 100 H 99 07/17/20 21:18 100 H 99 07/17/20 21:13 92 H 98 07/17/20 21:09 94 H 111/70 07/17/20 21:08 90 98 07/17/20 21:03 91 H 99 07/17/20 20:58 98 H 98 07/17/20 20:54 92 H 112/71 07/17/20 20:53 90 99 07/17/20 20:48 87 99 07/17/20 20:43 83 98 07/17/20 20:39 84 111/71 07/17/20 20:38 87 99 07/17/20 20:33 86 98 07/17/20 20:28 92 H 99 07/17/20 20:23 92 H 99 07/17/20 20:18 86 99 07/17/20 20:13 88 99 07/17/20 20:10 88 101/65 07/17/20 20:08 89 98 07/17/20 20:03 87 98 07/17/20 19:58 85 99 07/17/20 19:54 102 H 117/66 07/17/20 19:53 88 99 07/17/20 19:48 103 H 100 07/17/20 19:43 90 99 07/17/20 19:42 98.1 F 94 H 16 107/69 07/17/20 19:39 85 116/74 07/17/20 19:38 86 98 07/17/20 19:33 90 100 07/17/20 19:28 85 98 07/17/20 19:24 94 H 107/72 07/17/20 19:23 90 98 07/17/20 19:18 89 100 07/17/20 19:13 83 98 07/17/20 19:09 85 111/72 07/17/20 19:08 85 99 07/17/20 19:03 85 98 07/17/20 18:58 79 98 07/17/20 18:54 82 107/69 07/17/20 18:53 83 99 07/17/20 18:48 80 99 07/17/20 18:44 92 H 84 07/17/20 18:43 85 98 07/17/20 18:39 90 112/68 07/17/20 18:38 92 H 97 07/17/20 18:33 88 98 07/17/20 18:28 93 H 99 07/17/20 18:24 89 113/72 07/17/20 18:23 93 H 98 07/17/20 18:18 94 H 99 07/17/20 18:13 85 99 07/17/20 18:09 98.2 F 82 18 108/71 07/17/20 18:08 86 98 07/17/20 18:03 92 H 98 07/17/20 17:58 92 H 98 07/17/20 17:54 93 H 106/68 07/17/20 17:53 93 H 98 07/17/20 17:48 93 H 98 07/17/20 17:43 84 98 07/17/20 17:39 85 102/66 07/17/20 17:38 87 98 07/17/20 17:33 83 97 07/17/20 17:28 82 97 07/17/20 17:24 82 97/63 07/17/20 17:23 86 98 07/17/20 17:18 90 98 07/17/20 17:16 18 07/17/20 17:13 87 98 07/17/20 17:12 91 H 93 07/17/20 17:09 89 109/71 07/17/20 17:08 91 H 97 07/17/20 17:03 92 H 98 07/17/20 17:00 100 H 92 07/17/20 16:58 89 99 07/17/20 16:54 83 106/68 07/17/20 16:53 90 98 07/17/20 16:48 92 H 99 07/17/20 16:43 86 99 07/17/20 16:39 80 102/67 07/17/20 16:38 83 98 07/17/20 16:33 85 98 07/17/20 16:28 84 98 07/17/20 16:24 84 104/68 07/17/20 16:23 84 98 07/17/20 16:18 92 H 99 07/17/20 16:13 82 98 07/17/20 16:09 86 116/68 07/17/20 16:08 81 98 07/17/20 16:03 83 98 07/17/20 15:58 89 98 07/17/20 15:54 85 114/63 07/17/20 15:53 82 98 07/17/20 15:48 82 98 07/17/20 15:43 86 97 07/17/20 15:39 88 98/66 07/17/20 15:38 86 97 07/17/20 15:33 90 98 07/17/20 15:28 88 99 07/17/20 15:27 84 107/69 07/17/20 15:24 82 99/65 07/17/20 15:23 85 98 07/17/20 15:18 80 98 07/17/20 15:13 82 98 07/17/20 15:09 84 101/66 07/17/20 15:08 82 98 07/17/20 15:03 84 98 07/17/20 14:58 82 97 07/17/20 14:54 90 103/66 07/17/20 14:53 90 98 07/17/20 14:48 83 97 07/17/20 14:43 82 97 07/17/20 14:39 83 105/67 07/17/20 14:38 83 98 07/17/20 14:33 86 98 07/17/20 14:28 90 98 07/17/20 14:24 92 H 105/64 07/17/20 14:23 90 97 07/17/20 14:18 91 H 98 07/17/20 14:13 85 99 07/17/20 14:09 88 107/72 07/17/20 14:08 92 H 98 07/17/20 14:03 89 98 07/17/20 13:58 91 H 98 07/17/20 13:54 88 105/66 07/17/20 13:53 89 97 07/17/20 13:48 94 H 99 07/17/20 13:43 94 H 97 07/17/20 13:40 98.2 F 07/17/20 13:39 90 108/67 07/17/20 13:38 88 97 07/17/20 13:33 90 97 07/17/20 13:28 89 98 07/17/20 13:24 90 101/64 07/17/20 13:23 86 97 07/17/20 13:18 93 H 97 07/17/20 13:13 88 97 07/17/20 13:09 89 98/61 07/17/20 13:08 91 H 97 07/17/20 13:03 84 98 07/17/20 12:58 95 H 97 07/17/20 12:54 89 113/72 07/17/20 12:53 85 97 07/17/20 12:48 94 H 98 07/17/20 12:43 89 98 07/17/20 12:39 96 H 113/70 07/17/20 12:38 92 H 97 07/17/20 12:33 92 H 97 07/17/20 12:28 85 97 07/17/20 12:24 86 105/60 07/17/20 12:23 86 97 07/17/20 12:18 84 98 07/17/20 12:13 85 97 07/17/20 12:09 83 111/64 07/17/20 12:08 89 96 07/17/20 12:03 85 97 07/17/20 11:58 89 96 07/17/20 11:54 87 123/69 07/17/20 11:53 87 98 07/17/20 11:48 86 98 07/17/20 11:43 86 98 07/17/20 11:39 86 134/76 07/17/20 11:38 85 99 07/17/20 11:33 86 99 07/17/20 11:28 94 H 98 07/17/20 11:24 89 128/82 07/17/20 11:23 85 98 07/17/20 11:22 97.7 F 20 07/17/20 11:18 87 98 07/17/20 11:13 92 H 98 07/17/20 11:11 92 H 126/74 07/17/20 11:09 90 126/74 07/17/20 11:08 89 98 07/17/20 11:03 91 H 98 07/17/20 10:58 93 H 99 07/17/20 10:54 93 H 120/75 07/17/20 10:53 93 H 98 07/17/20 10:48 94 H 98 07/17/20 10:43 94 H 97 07/17/20 10:39 90 118/78 07/17/20 10:38 94 H 98 07/17/20 10:33 94 H 98 07/17/20 10:28 91 H 98 07/17/20 10:27 88 115/75 07/17/20 10:23 93 H 99 07/17/20 10:18 87 98 07/17/20 10:13 86 98 07/17/20 10:09 90 122/69 07/17/20 10:08 90 98 07/17/20 10:03 85 98 07/17/20 09:58 87 99 07/17/20 09:54 87 113/74 07/17/20 09:53 89 98 07/17/20 09:48 91 H 97 Intake and Output 04/28/21 04/29/21 04/29/21 22:59 06:59 14:59 Intake Total 1000 Output Total 1550 1350 Balance -550 -1350 Intake: IV 1000 MAGNESIUM SULFATE 40GM/ 1000 1000ML 40 gm In 1,000 ml @ 2 GM/HR 50 mls/hr IV DIRECT JOSE ALEJANDRO Rx#:[id number] Output: Urine 1550 1350 Indwelling Catheter 1550 250 Void 1100 Other: Total, Output Amount 200 300 # Voids Void 1 - Exam Breasts: Present: normal Abdomen: Present: normal appearance, soft, normal bowel sounds Vulva: both: normal Uterus: Present: normal, firm, fundal height below umbilicus Extremities: Present: normal Incision: Present: normal, dry, intact - Labs Labs: Abnormal lab results 07/17/20 07/17/20 07/17/20 Range/Units 08:35 10:20 13:48 Hgb 9.0 L (10.1-14.3) gm/dl Hct 28.1 L (30.3-42.9) % POC Glucose 140 H (70-105) mg/dL Magnesium 6.00 H (1.7-2.3) mg/dL 07/17/20 07/17/20 07/17/20 Range/Units 14:52 18:51 19:58 Hgb (10.1-14.3) gm/dl Hct (30.3-42.9) % POC Glucose 128 H 109 H (70-105) mg/dL Magnesium 6.50 H (1.7-2.3) mg/dL
--- NOTE | 2020-07-18 09:56 | Discharge Summary ---
Providers - Providers Date of Admission: 07/16/20 19:59 Date of discharge: 07/18/20 Attending physician: ROBERTO BOWERS MD Primary care physician: ROBERTO BOWERS MD Hospitalization Reason for admission: section Delivery: Procedure: repeat low transverse Episiotomy: none Laceration: none Incision: normal, dry, intact Other procedures: tubal ligation complications: none Discharge diagnosis: IUP at term delivered baby: male Hospital course: Pt was admitted for a repeat LTCS and BTL @ 37 wks r/t PIH. Pt had no pp complications. See H&P, delivery summary, and pp notes. Condition at discharge: Stable Disposition: - TO HOME OR SELFCARE Plan - Discharge Medications Prescriptions: HYDROcodone/APAP 5-325 [[place] 5/325] 1 each PO Q4HR PRN #20 tablet PRN Reason: Pain - Provider Discharge Summary Activity: routine, no sex for 6 weeks, no heavy lifting 4 weeks, no strenuous exercise Diet: routine Instructions: routine Additional instructions: [] Smoking cessation referral if applicable(refer to patient education folder for contact #) [] Refer to [facility]'s [facility] Booklet Call your doctor immediately for: * Fever > 100.5 * Heavy vaginal bleeding ( >1 pad per hour) * Severe persistent headache * Shortness of breath * Reddened, hot, painful area to leg or breast * Drainage or odor from incision. * Keep incision clean and dry at all times and follow doctor's instructions regarding bathing/showering - Follow up plan Follow up: ROBERTO BOWERS MD [Primary Care Provider] - 14 Days
[2020-07-18 12:05] VITALS: BP 130/89
[2020-07-18 14:09] LABS: Hematocrit 28.5 % (30.3-42.9); Hemoglobin 8.8 gm/dl (10.1-14.3)
== END 2020-07-18 13:40 | disposition home or self-care (01) | DRG 785 ==
LOC: TRG 17:12 → LD 17:13 → TRG 19:59 → LD 19:59 → OB 07-17 23:32
PROC: 10D00Z1 Extraction of Products of Conception, Low, Open Approach (ICD-10-PCS; principal; 2020-07-16)
PROC: 0UB70ZZ Excision of Bilateral Fallopian Tubes, Open Approach (ICD-10-PCS; 2020-07-16)
PROC: 3E0134Z Introduction of Serum, Toxoid and Vaccine into Subcutaneous Tissue, Percutaneous Approach (ICD-10-PCS; 2020-07-17)
PROC: 3E0234Z Introduction of Serum, Toxoid and Vaccine into Muscle, Percutaneous Approach (ICD-10-PCS; 2020-07-18)
DX: O11.4 Pre-existing hypertension with pre-eclampsia, complicating childbirth (principal); O99.02 Anemia complicating childbirth; O34.211 Maternal care for low transverse scar from previous cesarean delivery; O24.429 Gestational diabetes mellitus in childbirth, unspecified control; O99.62 Diseases of the digestive system complicating childbirth; K21.9 Gastro-esophageal reflux disease without esophagitis; Z20.822 Contact with and (suspected) exposure to COVID-19; Z37.0 Single live birth; Z3A.37 37 weeks gestation of pregnancy; Z79.899 Other long term (current) drug therapy; Z23 Encounter for immunization
CPT/HCPCS: 36415; 82962; 83735; 85014; 85018; 85027; 86592; 86850; 86900; 86901; 88302; G0378; C1765; J0690; J1100; J1170; J1885; J2270; J2370; J2405; J2765; J3475; J3490; J7120; U0003